=== PATIENT | male | born 1935 | race Caucasian/White ===

== ENCOUNTER 2018-11-20 09:43 | Inpatient (IN) | payer MEDICARE, BC ==
--- NOTE | 2018-11-20 10:11 | ED ---
Lower Extremity - HPI Summary HPI Summary: 83 year old M referred to [facility] by Dr. 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 Symptoms aggravated by movement. Symptoms alleviated by pain medication, last taken 1 week ago. Patient is able to ambulate. states that the night he feel after dinner, patient walked about half a mile over 3 different terrains of uneven boardwalk, concrete, and tile. states that while walking, patient's sandal hit the edge of tile and carpet causing patient to trip and fall forward. states that as patient fell down, he rotated his body and landed on to his right side. Patient states he did not hit his head or left side. no LOC. Patient states he needed assistance getting up after the fall and didn't realize he had right hip pain radiating to his right thigh and right knee until he got up. The next morning, patient stayed in bed per . states patient was given oral medication for bone pain. The resort's physician advised patient to leave the resort the night of the fall but patient did not because patient thought that his pain was improving per . This morning, patient ate one piece of toast with peanut butter and jelly. Patient is not taking blood thinners. Pt had imaging 11/18/18 documented impacted right femoral neck fx. Pt went to ortho today and was referred to ED for admission and planned pinning. 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 Patient is retired. Patient lives at home with his . Patients medication reviewed this visit. - History of Current Complaint Chief Complaint: EDHipPelvisInjury Stated Complaint: BROKEN HIP PER DR PATEL Time Seen by Provider: 11/20/18 09:49 Hx Obtained From: Patient, Family/Nutrition Services Manager - Mechanism Of Injury: Other - tripping on edge of tile and carpet, falling on to his right side Onset of Pain: Immediate Onset/Duration: Days - 12 Severity Currently: Mild Pain Intensity: 1 Pain Scale Used: 0-10 Numeric Timing: Constant Aggravating Factor(s): Movement Alleviating Factor(s): Other - pain medications - Allergies/Home Medications Allergies/Adverse Reactions: Allergies Allergy/AdvReac Type Severity Reaction Status Date / Time Penicillins Allergy Swelling Verified 11/20/18 09:48 Of Face,Lips,& Throat Home Medications: Home Medications NK [No Home Medications Reported] 11/20/18 [History Confirmed 11/20/18] PMH/Surg Hx/FS Hx/Imm Hx Previously Healthy: Yes Cardiovascular History: Reports: Other Cardiovascular Problems/Disorders - hypoglycemic episodes with light headedness Respiratory History: Reports: Hx Pneumonia Musculoskeletal History: Reports: Hx of Fracture(s) - R hip, Other Musculoskeletal History - pelvis injury Sensory History: Reports: Hx Macular Degeneration Opthamlomology History: Reports: Hx Macular Degeneration Neurological History: Reports: Other Neuro Impairments/Disorders - sciatica - Surgical History Surgery Procedure, Year, and Place: Left wrist, right ankle Infectious Disease History: No Infectious Disease History: Denies: Traveled Outside the [place] in Last 30 Days - Family History Known Family History: Positive: Non-Contributory Negative: Respiratory Disease - Social History Alcohol Use: Daily Alcohol Amount: 1-2 glasses of dry red wine at dinner Hx Substance Use: No Substance Use Type: Reports: None Hx Tobacco Use: Yes Smoking Status (MU): Current Every Day Smoker Type: Cigars Review of Systems Positive: Other - able to ambulate Positive: Other - right hip fracture, right hip pain radiating to right thigh and right knee All Other Systems Reviewed And Are Negative: Yes Physical Exam - Summary Physical Exam Summary: Vital Signs Reviewed: Yes A+Ox3, no distress Eyes: Conjunctiva Clear, JVAIER. EOM intact and full ENT: Hearing grossly normal TM x 2 clear, mmoist, uvula midline, no exudate, no erythema Neck: Positive: Supple Respiratory: Positive: No respiratory distress, No accessory muscle use + CTA throughout no w/r Cardiovascular: RRR nl s1, s2 no m/r CBT <2 sec abd soft + BS nt/nd no guarding, no distension Musculoskeletal Exam: CHO x 4 without difficulty Strength Intact, ROM Intact Neurological: Positive: Alert, + sensation throughout Psychological: Positive: Normal Response To cost and risk analysis manager Skin: Positive: no rash, no ecchymosis Triage Information Reviewed: Yes Vital Signs On Initial Exam: Initial Vitals Temp Pulse Resp BP Pulse Ox 98.7 F 80 16 177/87 96 11/20/18 09:44 11/20/18 09:44 11/20/18 09:44 11/20/18 09:44 11/20/18 09:44 Vital Signs Reviewed: Yes Diagnostics - Vital Signs Vital Signs Temp Pulse Resp BP Pulse Ox 11/20/18 09:44 98.7 F 80 16 177/87 96 - Laboratory Result Diagrams: 11/20/18 09:56 11/20/18 09:57 Lab Statement: Any lab studies that have been ordered have been reviewed, and results considered in the medical decision making process. - Radiology CXR Radiology Interpretation Completed By: Radiologist Summary of Radiographic Findings: CHRONIC INTERSTITIAL DISEASE WITH NO DEFINITE PNEUMONIA. ED physician has reviewed this report. - EKG 0956 Cardiac Rate: NL - 71 BPM EKG Rhythm: Sinus Rhythm Summary of EKG Findings: Sinus 71 BPM. No acute changes Lower Extremity Course/Dx - Course Course Of Treatment: Patient presents to urgent care with a known fracture of his right femoral neck. Patient had a mechanical fall on 11/08. Patient had pain initially been walking on it since. Patient L patient imaging on Sunday diagnosed with a fracture. Patient was sent to orthopedic office today who referred him to the ED for admission. Patient is healthy with no medical conditions other than glaucoma. Patient states his pain is less than 1 out of 10. Patient with good sensation intact. Spoke to Anjelica Cruz the physician' s assistant director of admissions from orthopedics will admit the patient. Patient to be kept nothing by mouth given gentle IV fluids will do preoperative lab work as well as imaging. Patient and significant other comfortable in agreement with plan. Questions asked and answered. - Diagnoses Provider Diagnoses: Nondisplaced fracture of neck of right femur - Physician Notifications Instructed by Provider To: Admit As Inpatient Discharge - Sign-Out/Discharge Documenting (check all that apply): Patient Departure - Discharge Plan Condition: Stable Disposition: ADMITTED TO [facility] Referrals: Blade Verma MD [Primary Care Provider] - - Billing Disposition and Condition Condition: STABLE Disposition: Admitted to [facility] - Attestation Statements Document Initiated by Scribe: Yes Documenting Scribe: Zulema Thomas Provider For Whom Scribe is Documenting (Include Credential): Judy Baez MD Scribe Attestation: Zulema Damon, scribed for Judy Baez MD on 11/20/18 at 1140. Scribe Documentation Reviewed: Yes Provider Attestation: The documentation as recorded by the scribe, Zulema Thomas accurately reflects the service I personally performed and the decisions made by me, Judy Baez MD Status of Scribe Document: Viewed
[2018-11-20 10:25] LABS: INR 1.06 (0.82-1.09)
[2018-11-20] MEDS ORDERED: NS 0.9% 1000 ML** 1,000 ML IV SCH (10:30)
[2018-11-20 10:36] LABS: Albumin 4.2 g/dL (3.2-5.2); BUN/Creatinine Ratio 21.9 (8-20); Calcium 9.5 mg/dL (8.6-10.3); EGFR African American 124.5 (>60); EGFR Non-African American 102.9 (>60); Globulin 4.1 g/dL (2-4); Magnesium 2.1 mg/dL (1.9-2.7); Potassium 4.4 mmol/L (3.5-5.0); Total Bilirubin 0.5 mg/dL (0.2-1.0); Total Protein 8.3 g/dL (6.4-8.9)
[2018-11-20] MEDS ORDERED: Docusate CAP* 100 MG PO PRN (10:50)
[2018-11-20] MEDS ORDERED: Ondansetron ODT TAB* 4 MG PO PRN (10:50)
[2018-11-20] MEDS ORDERED: diPHENhydraMINE PO* 25 MG PO PRN (10:50)
[2018-11-20] MEDS ORDERED: oxyCODONE TAB* 5 MG TAB PO PRN (10:50)
[2018-11-20] MEDS ORDERED: Morphine 4 MG/ML VIAL (1 ml) 4 MG/ML VIAL IV PRN (10:50)
[2018-11-20] MEDS ORDERED: Magnesium Hydroxide LIQ* 30 ML UDC PO PRN (10:50)
[2018-11-20] MEDS ORDERED: traMADol TAB* 50 MG PO PRN (10:50)
[2018-11-20] MEDS ORDERED: Ondansetron INJ* 2 MG/ML VIAL IV PRN (10:50)
[2018-11-20] MEDS ORDERED: diPHENhydraMINE IV* 50 MG/ML 1 ml VIAL (BENADRYL) IV PRN (10:50)
[2018-11-20] MEDS ORDERED: Lactated Ringers 1000 ML Bag* 1,000 ML IV SCH (11:00)
[2018-11-20 11:05] LABS: ABS Eosinophils 0.2 10^3/ul (0-0.6); ABS Lymphocytes 1.6 10^3/ul (1.0-4.8); ABS Monocytes 0.9 10^3/ul (0-0.8); ABS Neutrophils 4.1 10^3/ul (1.5-7.7); Eosinophil % 2.3 %; Hematocrit 38 % (42-52); Hemoglobin 12.6 g/dL (14.0-18.0); Lymphocyte % 23.7 %; Mean Corpuscular HGB Conc 34 g/dL (31-36); Mean Corpuscular Hemoglobin 33 pg (27-31); Mean Corpuscular Volume 99 fL (80-94); Mean Platelet Volume 8.7 fL (7.4-10.4); Nucleated Red Blood Cells % 0.1; Platelet Count 257 10^3/uL (150-450); Red Blood Count 3.81 10^6 /uL (4.18-5.48); Red Cell Distribution Width 13 % (10-15); White Blood Count 6.8 10^3/uL (3.5-10.8)
--- NOTE | 2018-11-20 13:40 | PN ---
Progress Note - Progress Note Date of Service: 11/20/18 Note: Please see full dictated note for further details. Patient has a right impacted femoral neck fracture. It will be managed with cannulated screws tomorrow with Dr Patel. He is to be NWB RLE, he may sit in a chair. Heparin until midnight, hold thereafter. NPO after midnight.
--- NOTE | 2018-11-20 14:13 | CONS ---
CC: Dr. Randy Patel; Dr. Blade Verma * DATE OF CONSULTATION: 11/20/2018. CONSULTING PROVIDER: Dr. Randy Patel. MY ATTENDING PHYSICIAN WHILE IN THE HOSPITAL: Dr. Felicita Silva (dictated by ALF Cullen). PRIMARY CARE PHYSICIAN: Dr. Blade Verma. REASON FOR CONSULTATION: Preoperative medical evaluation. HISTORY OF PRESENT ILLNESS: Mr. Hale is an 83-year-old male with a past medical history significant only for AAA, heart murmur, glaucoma, and BPH who presents to the emergency department. On November 09, he had had approximately four glasses of wine with his , was walking, feeling in his normal state of health, and tripped on the edge of his rug. He was able to turn himself and his right had significant pain after this. After this, no numbness or tingling in his leg and no significant deformity. The patient was able to continue walking. The patient was at a resort in [place] at the time and saw a physician there and was given pain medications, he is not sure what type. The patient, however, did continue to walk, was able to fly back to the [place] on the 16 of November and followed up with his primary care provider and then an orthopedist after being diagnosed with a hip fracture. The patient states the pain is his hip is mild at this time. The patient has not had any recent changes in his exercise tolerance. The patient several months ago was able to run up a flight of stairs without getting short of breath. He does not do this anymore due to concerns for slipping, but he is still able to walk up a flight of stairs without getting short of breath and is active around his lawn for approximately 12 hours a day, has a large property. The patient does sometimes get short of breath when walking briskly up hill for an extended period of time. The patient has never had a heart attack. The patient does not have any difficulty breathing lying flat. The patient has not had any swelling in his legs. No other recent illnesses. The patient only takes glaucoma medications. The patient does not have any history of pathologic fractures. The patient denies fevers, chills, nausea, vomiting, abdominal pain, diarrhea. The patient was sent in to the emergency department from his orthopedist office for hip fracture and consideration for surgical repair. PAST MEDICAL HISTORY: AAA, stable since at least 2014; glaucoma; left ankle fracture; right wrist fracture; gastric ulcer in 1965; BPH; heart murmur. PAST SURGICAL HISTORY: None. MEDICATIONS: Latanoprost one drop both eyes daily. ALLERGIES: PENICILLIN CAUSES ANAPHYLAXIS. FAMILY HISTORY: The patient's father in 1973 of leukemia. The patient's mother in the 30s of quinsy. The patient is the youngest of nine siblings. One of his siblings of an CA, one of cancer, one of an OD, one in infancy. The patient has three siblings who are in their 90s and are well. SOCIAL HISTORY: The patient has smoked for approximately 15 pack years, about half- a-pack a day, half a cigarette at a time. The patient drinks two glasses of red wine nightly and denies any illicit drugs. 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 He is to his second and has two children. The patient's surrogate decision maker would be his Dahlia Hale. The patient elected to be a DNR. REVIEW OF SYSTEMS: Fourteen point review of systems was reviewed and is negative except as noted in the HPI and for intentional weight loss since the winter. PHYSICAL EXAM: General: The patient is an 83-year-old male who appears stated age and is sitting comfortably in bed in no acute distress. Vital Signs: At the time of my evaluation, temperature 98.7, pulse rate 69, respiratory rate 16 , oxygen saturation 96 percent on room air, blood pressure 149/71. HEENT: Head normocephalic, atraumatic. Sclerae anicteric. No conjunctival injection. Nasal mucosa moist. Oral mucosa moist. No pharyngeal erythema, discharge, or exudate. Neck: Supple, nontender. No lymphadenopathy. No carotid bruits auscultated. No JVD. Cardiac: Regular rate and rhythm. Grade 2/6 holosystolic murmur heard best at the apex. No other adventitious heart sounds. Pulses are 2+ in the bilateral dorsalis pedis, posterior tibialis, and radial areas. No bilateral lower extremity edema noted. Bilateral calf tenders. Respiratory: Clear to auscultation bilaterally. No wheezes or rhonchi. Good air exchange bilaterally. Abdomen: Soft, nontender, nondistended. Bowel sounds present. Normoactive in all four quadrants. No hepatosplenomegaly. No abdominal bruits auscultated. No hepatojugular reflux. Genitourinary: No suprapubic or CVA tenderness. Skin: Clean, dry, and intact. No rash. Neuro: Cranial nerves II through XII intact. No focal deficits. Alert and oriented times three. Psychiatric: Pleasant and cooperative. DIAGNOSTIC STUDIES/LAB DATA: White blood cell count pending. INR 1.06. Sodium 136, potassium 4.4, chloride 103, carbon dioxide 27, BUN 16, creatinine 0.73, glucose 98, calcium 9.5, magnesium 2.1, bilirubin 0.5, AST 19, ALT 12, alkaline phosphatase 66, protein 8.3, albumin 4.2, globulin 4.1. STUDIES: Chest x-ray read as chronic interstitial lung disease with no definite pneumonia, to this author's read is unremarkable. EKG shows possible left atrial enlargement, no other hypertrophy enlargement, no blocks, rate of 71 , QTC of 455, no ST segment elevation or depression, borderline left axis deviation. IMPRESSION: Mr. Hale is an 83-year-old male with a past medical history significant for AAA, heart murmur, and a significant history of smoking who presented to the emergency department after a mechanical fall causing a right hip fracture for which he will be admitted to the hospital. 1. Right hip fracture: Preoperative risk evaluation. The patient has excellent functional capacity. The patient has functional capacity. The patient has previously been evaluated with an echocardiogram for his heart murmur, though these results are not available and he is not able to impart these at this time. The patient has no heart failure physiology, nor is his murmur diastolic, nor have any other markedly alarming features. Will attempt to get records from his primary care provider, but his does not need to delay his surgery. The patient is an RCR of 0 indicating a 3.9 30 day risk of , CA, or cardiac arrest. The patient at this time is medically optimized for surgery with no further testing indicated. This has been communicated to the orthopedic team. 2. AAA: The patient's AAA has been stable since at least 2014. Would avoid extreme changes in blood pressure intraoperatively if possible. The patient may need antihypertensive therapy at some point to decrease the progression of his AAA; however, this is not indicated at this time. 3. History of tobacco abuse: The patient currently smokes two cigars a day. Nicotine inhaler will be available if requested. The patient should quit smoking. 4. BPH: The patient is not currently retaining, but does have some lower urinary tract symptoms consistent with intermittent obstruction without retention. 5. DVT prophylaxis: Per Orthopedics. The patient has no contraindications to anticoagulation. 6. FEN: The patient will be NPO at this time for possible surgery. The patient will have fluids while he is NPO at 100 ml/hr. Advance per Orthopedics. 7. Code status: The patient will like to be a DNR. TIME SPENT: Approximately 60 minutes were spent on this consultation, 30 of which were spent [id number] with the patient obtaining history and physical and discussing the treatment plan. This plan was discussed with my attending, Dr. Felicita Silva, and she is in agreement with the above. ALF CULLEN [id number]/CPS #: [id number] JOSTIN
[2018-11-20 14:18] LABS: EGFR African American 139.8 (>60); EGFR Non-African American 115.6 (>60)
[2018-11-20] MEDS: Acetaminophen TAB* 325 MG PO SCH ×2 (14:21→21:17)
[2018-11-20] MEDS: Heparin VIAL(*) 5000 UNITS/ML VIAL (FIVE THOUSAND) SUBCUT SCH ×2 (14:24→21:17)
--- OUTSIDE RECORDS SUMMARY | 2018-11-20 17:54 | XMS REPORT | Continuity of Care Document ---
:02/21/1950 External Reference #:[id number] Author Name Lazara Baez MD Address [address] [place] [address] Care Team Providers Name Role Phone [facility] - Allergy & Care Team Information [facility] Care Team Information [place] [phone] Jayleen Becerril Care Team Information [facility] [phone] Brittany Barclay Care Team Information [facility] Unavailable Lazara Baez MD - Family Medicine Care Team Information [facility] Edi Jalloh MD Care Team Information [facility] [phone] Robert Valdez PT - Physical Care Team Information [facility] [phone] Therapist Kulwinder Lund DPM - Jewelry Sales Care Team Information [facility] Brandyn Valdez Development Trainer Care Team Information [facility] [phone] Hank Goldberg MD - Urology Care Team Information [facility] [phone] Jt Dorado MD - Otolaryngology Care Team Information [facility] Problems Active Problems Provider Date Obstructive sleep apnea syndrome Gustavo Madsen DO Onset: 02/19/2014 Mixed hyperlipidemia Gustavo Madsen DO Onset: 06/20/2012 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 Ghada Raymundo MD Onset: 11/24/2009 Gastroesophageal reflux disease Ghada Raymundo MD Onset: 11/24/2009 Type 2 diabetes mellitus Ghada Raymundo MD Onset: 11/24/2009 Generalized anxiety disorder Ghada Raymundo MD Onset: 11/24/2009 Degenerative joint disease involving multiple Ghada Raymundo MD Onset: joints Malignant tumor of prostate Lazara Baez MD Onset: 04/25/2018 Irritable bowel syndrome with diarrhea Lazara Beaz MD Onset: 04/25/2018 Polyneuropathy due to type 2 diabetes mellitus Lazara Baez MD Onset: Insomnia Lazara Baez MD Onset: 08/05/2018 Social History Type Date Description Comments Sex Unknown ETOH Use Never used alcohol Tobacco Use Start: Unknown End: Patient is a former quit is his early Unknown smoker 20's - does not meet criteria for low dose lung cancer screening Smoking Status Reviewed: 11/15/18 Patient is a former quit is his early smoker 20's - does not meet criteria for low dose lung cancer screening Exercise Does not exercise Type/Frequency Allergies, Adverse Reactions, Alerts Description No Known Drug Allergies Medications Active Medications SIG Qnty Indications Ordering Provider Date Duloxetine HCL take one capsule 53caps F41.1 Lazara Baez, 11/07/2018 30mg by mouth every MD Caps DR Part day M51.17 Methylprednisolone use as directed 1pack Jessy De Santiago, 09/09/2018 4mg TBPK M.D. Cpap use with sleep G47.33 Lazara Baez, 08/05/2018 Device Gabapentin take 1 by mouth 90tabs M51.06 Jessy De Santiago, 07/29/2018 600mg Tablets three times a day M.D. M15.9 Pioglitazone HCL 1 by mouth every 90tabs E11.9 Lazara Baez, 05/20/2018 15mg day MD Tablets Accu-Chek Fastclix Glucose Monitoring 1units E11.9 Gustavo Madsen, 07/07 Lancetdevice Kit Daily. DX: 250.00 DO Kit Alcohol Pads used as directed 100units Lazara Baez, 07/06/2014 70% Pads for glucose MD monitoring. dx: 250.0 Vitamin D 1 by mouth every Unknown 2000Unit day Capsules Accu-Chek Kimi Plus check blood sugar 100units Lazara Baez, daily Strips Accu-Chek Fastclix check fasting blood 102units Lazara Baez, Lancets sugar as needed MD Lam Metformin HCL ER take 4 tablets by 120tabs E11.9 Lazara Baez, 500mg mouth every day Tablets ER 24HR with meal Trazodone HCL take two tablets by 60tabs G47.00 Lazara Baez, 50mg mouth at bedtime Tablets Multi Vitamin 1 by mouth every Lazara Baez, Tablets day Fish Oil Quell 2 po qd Jessy De Santiago, Capsules M.DTevin Esomeprazole Magnesium take one capsule by 180caps K21.9 Lazara Baez, mouth twice a day 40mg Capsules DR Acetaminophen 2 by mouth twice a Lazara Baez, 500mg day as needed Tablets Glimepiride take 1 tablet by 180tabs E11.9 Lazara Baez, 2mg Tablets mouth twice daily Atorvastatin Calcium take one tablet by 90tabs E78.2 Lazara Baez, 10mg mouth every day Tablets Alprazolam 1/2 by mouth once F41.1 Lazara Baez, 1mg Tablets a day code "a" as MD needed History Medications Amoxicillin/Clavulanate 1 by mouth 20tabs K57.32 Nestor 07/10/2018 - Potassium twice daily MD Lazara 07/20/2018 875-125mg Tablets x 10 days Gabapentin 1 by mouth 90caps M51.06 Nestor 07/10/2018 - 400mg Capsules 3 times a MD Lazara 07/29/2018 day Medications Administered in Office Medication SIG Qnty Indications Ordering Provider Date Low Osmolar Contrast Material Jessy De Santiago M.D. 12/31/2017 200-299MG/ML Iodine 1ML Injection Decadron 1MG Dexamethasone Jessy De Santiago M.D. 12/31/2017 Sodium Phosphate 1MG Injection Decadron 1MG Dexamethasone Jessy De Santiago M.D. 11/05/2017 Sodium Phosphate 1MG Injection Decadron 1MG Dexamethasone Jessy De Santiago M.D. 03/27/2017 Sodium Phosphate 1MG Injection Low Osmolar Contrast Material Jessy De Santiago M.D. 02/23/2017 200-299MG/ML Iodine 1ML Injection Low Osmolar Contrast Material Jessy De Santiago M.D. 01/04/2017 200-299MG/ML Iodine 1ML Injection Low Osmolar Contrast Material Jessy De Santiago M.D. 10/11/2016 200-299MG/ML Iodine 1ML Injection Decadron 1MG Dexamethasone Jessy De Santiago M.D. 10/11/2016 Sodium Phosphate 1MG Injection Low Osmolar Contrast Material Jessy De Santiago M.D. 09/06/2016 200-299MG/ML Iodine 1ML Injection Decadron 1MG Dexamethasone Jessy De Santiago M.D. 09/06/2016 Sodium Phosphate 1MG Injection Low Osmolar Contrast Material Jessy De Santiago M.D. 05/11/2016 200-299MG/ML Iodine 1ML Injection Depo Medrol 40 MG Jessy De Santiago M.D. 05/11/2016 Injection Low Osmolar Contrast Material Jessy De Santiago M.D. 05/04/2016 200-299MG/ML Iodine 1ML Injection Decadron 1MG Dexamethasone Jessy De Santiago M.D. 05/04/2016 Sodium Phosphate 1MG Injection Depo Medrol 80 MG Gustavo Madsen DO 04/22/2014 Injection Immunizations CPT Code Status Date Vaccine Reaction Lot # [id number] Given 01/24/2018 Fluzone Highdose Age 65 And Over Preservative & Antibiotic Free 26132 Given 06/07/2017 Tdap (Boostrix)tetanus, diptheria toxoid & acellular pertussis 79459 Given 02/02/2017 Fluzone Highdose Age 65 And Given at [facility] Preservative & Chopper Antibiotic Free 75669 Given 07/05/2016 Pneumococcal 23 Immunization Im inj completed, Pt [id number] Adult Or Immunosuppressed tolerated well Patient Q2037 Given 12/30/2015 Fluvirin Immunization Given At [facility] 21544 Given 01/05/2015 Prevnar 13 Pneumococal Im inj completed, Pt [id number] Conjugate Vaccine tolerated well 40652 Given 01/16/2013 Afluria Or Fluvirin Flu Vac Intramuscular 21228 Given 03/20/2006 Afluria Or Fluvirin Flu Vac [id number] Intramuscular 24318 Refused 04/25/2018 Shingrix (Shingles) Zoster Vaccine HZV, Recombinant , Subunit, Adj Vital Signs Date Vital Result Comment 11/15/2018 1:48pm Weight 208.00 lb Heart Rate 90 /min BP Systolic 138 mmHg BP Diastolic 88 mmHg Respiratory Rate 18 /min Height 69 inches 5'9" BMI (Body Mass Index) 30.7 kg/m2 11/07/2018 8:39am Weight 214.56 lb Heart Rate 78 /min BP Systolic 132 mmHg BP Diastolic 84 mmHg Respiratory Rate 18 /min Height 69 inches 5'9" BMI (Body Mass Index) 31.7 kg/m2 Results Test Date Facility Test Result H/L Range Note Microalb/Creat Panel 11/07/2018 [facility] Creatinine, Urine 118.7 mg/dL 1 Microalbumin < 7.0 ug/ml 5.0-20.0 Lipid Treatment 10/31/2018 [facility] Cholesterol 160 mg/dL 50-199 2 Triglycerides 191 mg/dL 30-200 HDL 40 mg/dL 29-71 3 Chol/ HDL Ratio 4.0 ratio 4.0-6.7 VLDL 38 mg/dL High 2-29 LDL (Calc) 82 mg/dL 20-99 4 Alt 20 U/L 3-42 Ast 16 U/L 8-42 Basic (BMP) 10/31/2018 [facility] Sodium 136 mmol/L 135-146 5 Potassium 4.6 mmol/L 3.5-5.2 Chloride# 99 mmol/L 97-110 6 Carbon Dioxide 25 mmol/L 24-34 Glucose 220 mg/dL High 70-105 BUN 20 mg/dL 6-26 Creatinine 1.1 mg/dL 0.5-1.4 Calcium 9.6 mg/dL 8.5-10.5 7 Female Egfr 52 Low >60 8 Male Egfr 69 >60 9 Anion Gap 12 mmol/L 5-15 10 Hemoglobin A1c 10/31/2018 [facility] Hemoglobin A1c 8.0 % High 4.1-5.9 Estimated Average Glucose Calc 183 mg/dL High 71-140 Drugs Of 08/05/2018 [facility] Amphetamines,Urine NEGATIVE <1000 ng/mL Abuse,Urine-[facility] Barbiturates,Urine NEGATIVE <200 ng/mL Benzodiazepines, Urine POSITIVE Abnormal <200 ng/mL Bupernorphrine/Norbu,Urine NEGATIVE <10 ng/mL Cocaine Metabolites,Urine NEGATIVE <300 ng/mL Methadone,Urine NEGATIVE <300 ng/mL Opiates,Urine NEGATIVE <300 ng/mL Oxycodone,Urine NEGATIVE <100 ng/mL Phencyclidine,Urine NEGATIVE <25 ng/mL Cannabinoids,Urine NEGATIVE <50 ng/mL Basic (BMP) 07/31/2018 [facility] Sodium 136 mmol/L 135-146 11, 12 Potassium 4.5 mmol/L 3.5-5.2 Chloride# 100 mmol/L 97-110 13 Carbon Dioxide 27 mmol/L 24-34 Glucose 208 mg/dL High 70-105 BUN 21 mg/dL 6-26 Creatinine 1.0 mg/dL 0.5-1.4 Calcium 9.6 mg/dL 8.5-10.2 Female Egfr 57 Low >60 14 Male Egfr 75 >60 15 Anion Gap 9 mmol/L 5-15 16 Hemoglobin A1c 07/31/2018 Ra Hemoglobin A1c 8.0 % High 4.1-5.9 Estimated Average Glucose Calc 183 mg/dL High 71-140 1 Unable to calculate ratio. Microalbumin <7.0 2 3 mo 3 Per NCEP ATP III Guidelines: Results lower than 40 mg/dL are suggestive of increased risk for coronary artery disease. Results > or=to 60 mg/dL are considered a negative risk factor. 4 Per NCEP ATP III Guidelines: Normal Population <130 Patients with medical conditions: CHD/DM Optimal: <100 Borderline high: 130-159 High: 160-189 Very high: >189 5 Updated reference range on new analyzer 6 Updated reference range on new analyzer 7 Updated reference range 08-07-2018 8 Concerning GFR Guidelines for Americans: Normal function or mild renal disease, if clinically at risk: >/=60 mL/min Moderately decreased: 30-59 Severely decreased: 15-29 Renal failure: <15 There is reduced accuracy above 60ml/min/1.73 m squared, but the numeric value may be clinically useful in the near 60 range 9 Concerning GFR Guidelines: Normal function or mild renal disease, if clinically at risk: >/=60 mL/min Moderately decreased: 30-59 Severely decreased: 15-29 Renal failure: <15 There is reduced accuracy above 60ml/min/1.73 m squared, but the numeric value may be clinically useful in the near 60 range Glomerular Filtration Rate (GFR) is estimated based on the CKD-EPI equation, which assumes a steady state for creatinine as recommended by the National Kidney Disease Education Program in conjunction with the National Institutes of Health and the National Kidney Foundation. Clinical conditions in which it may be necessary to measure GFR by using clearance methods include extremes of age and body size, severe malnutrition or obesity, diseases of skeletal muscle, paraplegia or quadriplegia, vegetarian diet, rapidly changing kidney function, and calculation of the dose of potentially toxic drugs that are excreted by the kidneys. 10 Updated Reference Range 11 3 mos 12 Updated reference range on new analyzer 13 Updated reference range on new analyzer 14 Concerning GFR Guidelines for Americans: Normal function or mild renal disease, if clinically at risk: >/=60 mL/min Moderately decreased: 30-59 Severely decreased: 15-29 Renal failure: <15 There is reduced accuracy above 60ml/min/1.73 m squared, but the numeric value may be clinically useful in the near 60 range 15 Concerning GFR Guidelines: Normal function or mild renal disease, if clinically at risk: >/=60 mL/min Moderately decreased: 30-59 Severely decreased: 15-29 Renal failure: <15 There is reduced accuracy above 60ml/min/1.73 m squared, but the numeric value may be clinically useful in the near 60 range Glomerular Filtration Rate (GFR) is estimated based on the CKD-EPI equation, which assumes a steady state for creatinine as recommended by the National Kidney Disease Education Program in conjunction with the National Institutes of Health and the National Kidney Foundation. Clinical conditions in which it may be necessary to measure GFR by using clearance methods include extremes of age and body size, severe malnutrition or obesity, diseases of skeletal muscle, paraplegia or quadriplegia, vegetarian diet, rapidly changing kidney function, and calculation of the dose of potentially toxic drugs that are excreted by the kidneys. 16 Updated Reference Range Procedures Date Code Description Status 11/07/2018 16074 Brief Emotional/Behav Assessment W/ Scoring Doc Per Completed Standard Inst 02/11/2016 18286287 Colonoscopy Completed Medical Devices Description No Information Available Encounters Type Date Location Provider Dx Diagnosis Office Visit 11/07/2018 8:45a [facility] Lazara Baez MD E66.9 Obesity, unspecified E78.2 Mixed hyperlipidemia E11.9 Type 2 diabetes mellitus without complications M51.17 Intvrt disc disorders w radiculopathy, lumbosacral region N40.1 Benign prostatic hyperplasia with lower urinary tract symp F41.1 Generalized anxiety disorder C61 Malignant neoplasm of prostate M15.9 Polyosteoarthritis, unspecified G47.33 Obstructive sleep apnea (adult) (pediatric) K21.9 Gastro-esophageal reflux disease without esophagitis G47.00 Insomnia, unspecified Z68.31 Body mass index (BMI) 31.0-31.9, adult Office Visit 09/09/2018 7:45a Lisa Hutchinson Rachel M51.17 Intvrt disc MD Roxana MIGUEL disorders w radiculopathy, lumbosacral region M51.16 Intervertebral disc disorders w radiculopathy, 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, 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, lumbar region Z68.31 Body mass index (BMI) 31.0-31.9, adult Office Visit 08/05/2018 8:00a [facility] Lazara Baez MD Z00.00 Encntr for general adult medical exam w/o abnormal findings E66.9 Obesity, unspecified N40.1 Benign prostatic hyperplasia with lower urinary tract symp F41.1 Generalized anxiety disorder C61 Malignant neoplasm of prostate M15.9 Polyosteoarthritis, unspecified E11.9 Type 2 diabetes mellitus without complications E78.2 Mixed hyperlipidemia G47.33 Obstructive sleep apnea (adult) (pediatric) Z13.31 Encounter for screening for depression K21.9 Gastro-esophageal reflux disease without esophagitis Z68.31 Body mass index (BMI) 31.0-31.9, adult G47.00 Insomnia, unspecified Office Visit 07/29/2018 7:45a Lisa Hutchinson Rachel M51.17 Intvrt disc MD Roxana MIGUEL disorders w radiculopathy, lumbosacral region M51.16 Intervertebral disc disorders w radiculopathy, 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, 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, lumbar region Z68.31 Body mass index (BMI) 31.0-31.9, adult Office Visit 07/10/2018 9:15a [facility] Lazara Baez MD E66.9 Obesity, unspecified K57.32 Dvtrcli of lg int w/o perforation or abscess w/o bleeding 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, lumbar region Z68.31 Body mass index (BMI) 31.0-31.9, adult Assessments Date Code Description Provider 11/15/2018 F41.1 Generalized anxiety disorder Lazara Baez MD 11/15/2018 M15.9 Polyosteoarthritis, unspecified Lazara Baez MD 11/07/2018 E66.9 Obesity, unspecified Lazara Baez MD 11/07/2018 E78.2 Mixed hyperlipidemia Lazara Baez MD 11/07/2018 E11.9 Type 2 diabetes mellitus without Lazara Baez MD complications 11/07/2018 M51.17 Intervertebral disc disorders with Lazara Baez MD radiculopathy, lumbosacra 11/07/2018 N40.1 Benign prostatic hyperplasia with lower Lazara Baez MD urinary tract symptoms 11/07/2018 F41.1 Generalized anxiety disorder Lazara Baez MD 11/07/2018 C61 Malignant neoplasm of prostate Lazara Baez MD 11/07/2018 M15.9 Polyosteoarthritis, unspecified Lazara Baez MD 11/07/2018 G47.33 Obstructive sleep apnea (adult) (pediatric) Lazara Baez MD 11/07/2018 K21.9 Gastro-esophageal reflux disease without Lazara Baez MD esophagitis 11/07/2018 G47.00 Insomnia, unspecified Lazara Baez MD 11/07/2018 Z68.31 Body mass index (BMI) 31.0-31.9, adult Lazara Baez MD 11/07/2018 E11.9 Type 2 diabetes mellitus without [facility] complications 10/31/2018 E78.2 Mixed hyperlipidemia Lazara Baez MD 10/31/2018 E78.2 Mixed hyperlipidemia Schedule, Laboratory 10/31/2018 E11.9 Type 2 diabetes mellitus without Lazara Baez MD complications 10/31/2018 E11.9 Type 2 diabetes mellitus without Schedule, Laboratory complications 10/31/2018 E78.2 Mixed hyperlipidemia [facility] 10/31/2018 E11.9 Type 2 diabetes mellitus without [facility] complications 09/09/2018 M51.17 Intervertebral disc disorders with Bossi, Shirin, PA-C radiculopathy, lumbosacra 09/09/2018 M51.16 Intervertebral disc disorders with Bossi, Shirin, PA-C radiculopathy, lumbar reg 09/09/2018 M47.817 Spondylosis without myelopathy or Bossi, Shirin, PA-C radiculopathy, lumbosacral 09/09/2018 M47.816 Spondylosis without myelopathy or Bossi, Shirin, PA-C radiculopathy, lumbar [place] 09/09/2018 Z68.31 Body mass index (BMI) 31.0-31.9, adult Boscarol Shirin, PA-C 08/05/2018 Z00.00 Encounter for general adult medical Lazara Baez MD examination without abnormal findings 08/05/2018 E66.9 Obesity, unspecified Lazara Baez MD 08/05/2018 N40.1 Benign prostatic hyperplasia with lower Lazara Baez MD urinary tract symptoms 08/05/2018 F41.1 Generalized anxiety disorder Lazara Baez MD 08/05/2018 C61 Malignant neoplasm of prostate Lazara Baez MD 08/05/2018 M15.9 Polyosteoarthritis, unspecified Lazara Baez MD 08/05/2018 E11.9 Type 2 diabetes mellitus without Lazara Baez MD complications 08/05/2018 E78.2 Mixed hyperlipidemia Lazara Baez MD 08/05/2018 G47.33 Obstructive sleep apnea (adult) (pediatric) Lazara Baez MD 08/05/2018 Z13.31 Encounter for screening for depression Lazara Baez MD 08/05/2018 K21.9 Gastro-esophageal reflux disease without Lazara Baez MD esophagitis 08/05/2018 Z68.31 Body mass index (BMI) 31.0-31.9, adult Lazara Baez MD 08/05/2018 G47.00 Insomnia, unspecified Lazara Baez MD 08/05/2018 Z79.899 Other prison (current) drug therapy [facility] 07/31/2018 E11.9 Type 2 diabetes mellitus without Lazara Baez MD complications 07/31/2018 E11.9 Type 2 diabetes mellitus without Schedule, Laboratory complications 07/31/2018 E11.9 Type 2 diabetes mellitus without [facility] complications 07/29/2018 M51.17 Intervertebral disc disorders with Shirin Gonzalez PA-C radiculopathy, lumbosacra 07/29/2018 M51.16 Intervertebral disc disorders with Shirin Gonzalez PA-C radiculopathy, lumbar reg 07/29/2018 M47.817 Spondylosis without myelopathy or Shirin Gonzalez PA-C radiculopathy, lumbosacral 07/29/2018 M47.816 Spondylosis without myelopathy or Shirin Gonzalez PA-Hortensia radiculopathy, lumbar dal[place] 07/29/2018 Z68.31 Body mass index (BMI) 31.0-31.9, adult Shirin Gonzalez PA-C 07/10/2018 E66.9 Obesity, unspecified Lazara Baez MD 07/10/2018 K57.32 Diverticulitis of large intestine without Lazara Baez MD perforation or abs 07/10/2018 M51.06 Intervertebral disc disorders with Lazara Baez MD myelopathy, lumbar region 07/10/2018 Z68.31 Body mass index (BMI) 31.0-31.9, adult Lazara Baez MD Plan of Treatment Future Appointment(s):11/22/2018 3:30 pm - Lazara Baez MD at [facility]01/31/2019 9:05 am - Schedule, Laboratory at [facility]02/07/2019 8:45 am - Lazara Baez MD at [facility]01/10/2019 7:45 am - Shirin Gonzalez PA-C at [facility] MD [id number] - Lazara Baez MDF41.1 Generalized anxiety disorderComments:Anxiety was doing better on 30 mg of duloxetine. He did not tolerate 60 mg of duloxetine. He tolerated 30 mg of duloxetine. We will resume one pill during the day. advised to stop duloxetine if hehas another episode of swelling of the lips. He would like to try to stay on this medicationFollow up:Follow up as xkdlsbiriQ52.9 Polyosteoarthritis, unspecifiedComments:His arthritis symptoms also improved with low dose duloxetine. continue this for now. Functional Status Description No Information Available Mental Status Description No Information Available Referrals Description No Information Available
--- OUTSIDE RECORDS SUMMARY | 2018-11-20 17:55 | XMS REPORT | Continuity of Care Document ---
:02/21/1950 External Reference #:[id number] Author Name Lazara Baez MD Address [address] [place] [address] Care Team Providers Name Role Phone Brittany Barclay Care Team Information Director Of Business Continuity Unavailable Lazara Baez MD Primary Care Physician Unavailable Payers Date Identification Numbers Payment Provider Subscriber Effective: 2013 Policy Number: [id number] Medicare Part B Garrett Hale PayID: [id number] [address] [place] [address] Policy Number: [id number] Lifetime Benefit Solns Kaycee Hale Group Number: [id number] [address] [address] PayID: [place] [address] Expires: 2014 Policy Number: [id number] Rmsco DO Not Use Kaycee Hale Group Number: [id number] [address] PayID: [place] [address] Problems Active Problems Provider Date Obstructive sleep [...] 04/25/2018 Irritable bowel syndrome with diarrhea Lazara Baez MD Onset: 04/25/2018 Polyneuropathy due to type 2 diabetes mellitus Lazara Baez MD Onset: Insomnia Lazara Baez MD Onset: 08/05/2018 Resolved Problems Benign prostatic hypertrophy with outflow Lazara Baez MD Onset: 2017 obstruction Resolved: 11/07/2018 Social History Type Date Description Comments Sex Unknown Marital Status Diet Healthy, Well Balanced Occupation Disabled - 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 disabled, 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, due to back and knees, arthritis 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, 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, 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 Hand Dominance LEFT-handed Abuse No history of abuse ETOH Use Never used alcohol Tobacco Use Start: Unknown End: Patient is a former quit is his early Unknown smoker 20's - does not meet criteria for low dose lung cancer screening Smoking Status Reviewed: 08/05/18 Patient is a former quit is his early smoker 20's - does not meet criteria for low dose lung cancer screening Exercise Does not exercise Type/Frequency Allergies, Adverse Reactions, Alerts Description No Known Drug Allergies Medications Active Medications SIG Qnty Indications Ordering Provider Date Duloxetine HCL take one capsule 53caps F41.1 Lazara Baez, 11/07/2018 30mg by mouth every MD Caps DR Part day x 1 week then 2 po daily M51.17 Methylprednisolone use as directed 1pack Jessy De Santiago, 09/09/2018 4mg TBPK M.D. Cpap use with sleep G47.33 Lazara Baez, 08/05/2018 Device MD Gabapentin take 1 by mouth 90tabs M51.06 [...] K21.9 Lazara Baez, mouth twice a day MD 40mg Capsules DR Acetaminophen 2 by mouth [...] K57.32 Nestor 07/10/2018 - Potassium twice daily x MD Lazara 07/20/2018 875-125mg Tablets 10 days Gabapentin 1 by mouth 3 90caps M51.06 Nestor 07/10/2018 - 400mg Capsules times a day MD Lazara 07/29/2018 Gabapentin 1 by mouth 90caps M51.06 Jonnathan, 03/29/2018 - 300mg Capsules three times a Yudy Jiménez 07/10/2018 day Gabapentin 2 by mouth 180caps Jonnathan, 01/25/2018 - 100mg Capsules three times a Yudy Jiménez 03/29/2018 day Cyclobenzaprine HCL take 1 tablet 30tabs M54.5 Digiovanna, 01/07/2018 - 10mg Tablets by mouth every Ladonna, [employer] 04/24/2018 8 hours as needed for pain Pioglitazone HCL 1 by mouth 30tabs E11.9 Nestor, 08/24/2017 - 15mg Tablets every day MD Lazara 04/25/2018 Ec-81 Aspirin 1 by mouth 30tabs Nestor, 07/09/2017 - 81mg Tablets DR every day MD Lazara 12/17/2017 Elias Johnson, 02/02/2017 - Precious Bazan NP 04/12/2017 Pioglitazone HCL 1 by mouth 30tabs E11.9 Nestor, 01/03/2017 - 30mg Tablets every day MD Lazara 08/24/2017 Anexsia Every 4 Hours 12tabs Unknown 02/15/2015 - 5-325mg Tablets as Needed prn 03/25/2015 Pain Accu-Chek Kimi Plus Use To Check 100units E11.9 Cale, 01/05/2015 - Strips Blood Sugar DO Gustavo 03/14/2017 Daily as Directed Nasonex 2 puffs each 3units J30.9 Cale, 05/19/2014 - 50mcg/Act Suspension nostril every d DO Gustavo 07/24/2016 Claritin 1 PO Q D 30tabs 995.1 Cale, 04/28/2014 - 10mg Tablets DO Gustavo 06/02/2014 Ranitidine HCL 1PO bid 60tabs 995.1 Cale, 04/28/2014 - 150mg Tablets DO Gustavo 06/02/2014 Glucotrol XL 1 by mouth 90tabs Cale, 04/07/2014 - 10mg Tablets ER 24HR every day DO Gustavo 10/07/2014 Glucotrol XL 1 by mouth 90tabs Cale, 04/07/2014 - 10mg Tablets ER 24HR every day DO Gustavo 07/06/2014 Glucotrol XL 1 by mouth 90tabs Cale, 04/07/2014 - 10mg Tablets ER 24HR every day DO Gustavo 06/02/2014 Ibuprofen 1 by mouth 270tabs Cale, 01/06/2014 - 800mg Tablets three times a DO Gustavo 03/25/2015 day with food Veramyst 2 puffs each 3units Cale, 04/17/2013 - 27.5mcg/[place] Suspension nostril every d DO Gustavo 05/19/2014 Veramyst 2 puffs each 3units Cale, 04/17/2013 - 27.5mcg/[place] Suspension nostril every d DO Gustavo 03/25/2015 [facility] Vitamin D3 3 po qd E55.9 Nestor, 11/26/2012 - 1000Unit Chewmaria Haile MD 10/17/2017 Glumetza take four 360tabs Cale, 11/03/2011 - 500mg Tablets ER 24HR tablets by DO Gustavo 06/02/2014 mouth every day Aspirin Adult Low Strength 1 po qd 30tabs Breanne 11/24/2009 - 81mg MD Ghada 03/25/[address] De La Paz Curcumin 2 po qd Unknown - 02/23/2017 Hydrocodone-Acetaminophen 1 po tid as Unknown - 5-325mg needed Given at 02/02/2017 Tablets [facility] ER Lactobacillus 1 by mouth bid Unknown - Tablets while on 02/02/2017 antibiotic Given at [facility] ER Metronidazole 1 by mouth Unknown - 500mg Tablets three times a 02/02/2017 day x 12 days Given at [facility] ER Amoxicillin/Clavulanate 1 by mouth q 8 Unknown - Potassium hrs x 10 days 02/02/2017 500-125mg Tablets Given at [facility] ER Ondansetron HCL 1 tablet q8 Unknown - 4mg Tablets hours as needed 02/02/2017 nausea & vomitting Given at [facility] ER Curcumin Unknown - Tablets 02/02/2017 Zinc 1 by mouth Unknown - 50mg Tablets every day 03/14/2017 Disc Flex Unknown - 02/23/2017 Florastor 1 by mouth Nestor - 250mg Capsules twice a day MD Lazara 07/09/2017 Meriva Unknown - 01/25/2018 Hyoscyamine Sulfate ER 1 by mouth 90tabs K58.0 Nestor, - 0.375mg daily MD Lazara 07/29/2018 Tablets ER 12HR Tamsulosin HCL Iannotta, - 0.4mg Capsules Zachariah PA 10/17/2017 Advil 2 tab three Unknown - 200mg Tablets times a day as 01/25/2018 needed Natural Glucocil 4 po qd Unknown - 11/02/2016 [facility] Men's Diabetic Support 2 po qd Unknown - 03/27/2017 [facility] Diabetic Support Packet 1 po miguel Unknown - 11/02/2016 Ibuprofen 3-4 tabs by Unknown - 200mg Capsules mouth three 02/02/2017 times a day as needed with food or snack for pain Flomax 1 by mouth N40.1 Unknown - 0.4mg Capsules every oncee a 07/29/2018 day Nexium Take One 180caps K21.9 Cale, - 40mg Capsules DR Capsule By DO Gustavo 08/29/2016 Mouth Twice A Day Trazodone HCL AT Bedtime Unknown - 100mg Tablets 03/25/2015 Cialis Once Daily Becerril,Clemens - 5mg Tablets 07/30/2015 Naproxen Kit 2 Times A Day 60tabs Unknown - 500mg Tablets 03/25/2015 Fortamet Once Daily Unknown - 500mg Tablets ER 24HR 03/25/2015 Levocetirizine Once Daily J30.9 Unknown - Dihydrochloride 07/24/2016 5mg Tablets Aspirin Ec Once Daily E11.9 Unknown - 81mg Tablets DR 02/02/2017 Escitalopram Oxalate take one tablet 90tabs F41.1 Nestor, - 20mg Tablets by mouth every MD Lazara 11/07/2018 day M51.17 Nexium Take One Capsule 180caps CaleGustavo, - 40mg By Mouth Twice A DO 07/06/[address] Day Nexium Take One Capsule 180caps Cale, Gustavo, - 40mg By Mouth Twice A DO 07/06/[address] Audra Medications Administered in Office Medication SIG Qnty Indications Ordering Provider Date Low Osmolar Contrast Material Melfi, Jessy, M.D. 12/31/2017 200-299MG/ML Iodine 1ML Injection Decadron [...] Injection Depo Medrol 40 MG Jessy De Santaigo M.D. 05/11/2016 Injection Low Osmolar Contrast Material Jessy De Santiago M.D. 05/04/2016 200-299MG/ML Iodine 1ML Injection Decadron 1MG Dexamethasone Jessy De Santiago M.D. 05/04/2016 Sodium Phosphate 1MG Injection Depo Medrol 80 MG Gustavo Madsen DO 04/22/2014 Injection Immunizations CPT Code Status Date Vaccine Reaction Lot # [id number] Given 01/24/2018 Fluzone Highdose Age 65 And Over Preservative & Antibiotic Free 12309 Given 06/07/2017 Tdap (Boostrix)tetanus, diptheria toxoid & acellular pertussis 52050 Given 02/02/2017 Fluzone Highdose Age 65 And Given at [facility] Over Preservative & Chopper Antibiotic Free 38154 Given 07/05/2016 Pneumococcal 23 Immunization Im inj completed, Pt [id number] Adult Or Immunosuppressed tolerated well Patient Q2037 Given 12/30/2015 Fluvirin Immunization [facility] At [facility] [address]124 Given 01/05/2015 Prevnar 13 Pneumococal Im inj completed, Pt [id number] Conjugate Vaccine tolerated well 90950 Given 01/16/2013 Afluria Or Fluvirin Flu Vac Intramuscular 55111 Given 03/20/2006 Afluria Or Fluvirin Flu Vac [id number] Intramuscular 92949 Refused 04/25/2018 Shingrix (Shingles) Zoster Vaccine HZV, Recombinant , Subunit, Adj Vital Signs Date Vital Result Comment 11/07/2018 8:39am Weight 214.56 lb Heart Rate 78 /min BP Systolic 132 mmHg BP Diastolic 84 mmHg Respiratory Rate 18 /min Height 69 inches 5'9" BMI (Body Mass Index) 31.7 kg/m2 09/09/2018 7:47am Heart Rate 50 /min BP Systolic 152 mmHg BP Diastolic 79 mmHg Respiratory Rate 18 /min 08/05/2018 8:03am Weight 215.00 lb Heart Rate 70 /min BP Systolic 112 mmHg R/Large BP Diastolic 70 mmHg R/Large Respiratory Rate 18 /min Height 69 inches 5'9" BMI (Body Mass Index) 31.7 kg/m2 07/29/2018 8:03am Weight 215.00 lb Heart Rate 60 /min BP Systolic 147 mmHg BP Diastolic 85 mmHg Height 69 inches 5'9" BMI (Body Mass Index) 31.7 kg/m2 07/10/2018 9:22am Body Temperature 97.0 F Weight 216.00 lb Heart Rate 82 /min BP Systolic 136 mmHg BP Diastolic 84 mmHg Respiratory Rate 18 /min Height 69 inches 5'9" O2 % BldC Oximetry 98 % Ra BMI (Body Mass Index) 31.9 kg/m2 04/25/2018 4:56pm Weight 218.00 lb Heart Rate 88 /min BP Systolic 138 mmHg BP Diastolic 76 mmHg Respiratory Rate 18 /min Height 69 inches 5'9" O2 % BldC Oximetry 94 % Ra BMI (Body Mass Index) 32.2 kg/m2 03/29/2018 11:36am Weight 218.00 lb Heart Rate 60 /min BP Systolic 135 mmHg BP Diastolic 78 mmHg 01/25/2018 10:07am Heart Rate 68 /min BP Systolic 127 mmHg BP Diastolic 67 mmHg Respiratory Rate 18 /min 01/21/2018 4:19pm Weight 218.00 lb Heart Rate 80 /min BP Systolic 138 mmHg BP Diastolic 84 mmHg Respiratory Rate 16 /min Height 69 inches 5'9" BMI (Body Mass Index) 32.2 kg/m2 01/07/2018 10:50am Weight 221.44 lb Heart Rate 80 /min BP Systolic 130 mmHg BP Diastolic 80 mmHg Respiratory Rate 18 /min Height 69 inches 5'9" BMI (Body Mass Index) 32.7 kg/m2 12/17/2017 8:01am Weight 213.00 lb Heart Rate 54 /min BP Systolic 124 mmHg BP Diastolic 75 mmHg Height 69 inches 5'9" BMI (Body Mass Index) 31.5 kg/m2 10/17/2017 7:49am Weight 213.00 lb Heart Rate 53 /min BP Systolic 155 mmHg BP Diastolic 81 mmHg Height 69 inches 5'9" BMI (Body Mass Index) 31.5 kg/m2 10/11/2017 8:28am Weight 213.00 lb Heart Rate 68 /min BP Systolic 130 mmHg BP Diastolic 79 mmHg Respiratory Rate 18 /min Height 69 inches 5'9" 10/11/17 BMI (Body Mass Index) 31.5 kg/m2 08/24/2017 1:44pm Weight 209.00 lb Heart Rate 64 /min BP Systolic 138 mmHg BP Diastolic 88 mmHg Respiratory Rate 17 /min Height 69 inches 5'9" BMI (Body Mass Index) 30.9 kg/m2 08/03/2017 7:38am Heart Rate 52 /min BP Systolic 102 mmHg BP Diastolic 82 mmHg Respiratory Rate 18 /min 07/09/2017 9:29am Weight 224.00 lb Heart Rate 76 /min BP Systolic 130 mmHg BP Diastolic 70 mmHg Respiratory Rate 18 /min Height 69 inches 5'9"07/09/17 BMI (Body Mass Index) 33.1 kg/m2 04/27/2017 7:32am Weight 215.00 lb Heart Rate 55 /min BP Systolic 172 mmHg BP Diastolic 92 mmHg Height 69 inches 5'9" BMI (Body Mass Index) 31.7 kg/m2 04/12/2017 1:59pm Weight 218.00 lb Heart Rate 72 /min BP Systolic 126 mmHg BP Diastolic 78 mmHg Respiratory Rate 18 /min Height 69 inches 5'9" BMI (Body Mass Index) 32.2 kg/m2 03/14/2017 7:43am Weight 205.00 lb Heart Rate 52 /min BP Systolic 133 mmHg BP Diastolic 78 mmHg Height 69 inches 5'9" BMI (Body Mass Index) 30.3 kg/m2 02/02/2017 1:25pm Heart Rate 76 /min BP Systolic 139 mmHg BP Diastolic 88 mmHg Height 69 inches 5'9" (07/04/16) 01/22/2017 1:30pm Body Temperature 98.1 F Weight 207.31 lb Heart Rate 76 /min BP Systolic 128 mmHg BP Diastolic 82 mmHg Respiratory Rate 18 /min Height 69 inches 5'9" (07/04/16) BMI (Body Mass Index) 30.6 kg/m2 01/03/2017 11:10am Weight 210.50 lb Heart Rate 78 /min 80 Reg BP Systolic 130 mmHg BP Diastolic 78 mmHg BP Systolic Recheck 110 mmHg BP Diastolic Recheck 78 mmHg Respiratory Rate 18 /min Height 69 inches 5'9" (07/04/16) BMI (Body Mass Index) 31.1 kg/m2 10/16/2016 8:19am Weight 214.00 lb Height 69 inches 5'9" (07/04/16) BMI (Body Mass Index) 31.6 kg/m2 10/05/2016 8:29am Weight 214.00 lb Heart Rate 76 /min 72 Reg BP Systolic 122 mmHg BP Diastolic 80 mmHg BP Systolic Recheck 128 mmHg BP Diastolic Recheck 80 mmHg Respiratory Rate 18 /min Height 69 inches 5'9" (07/04/16) BMI (Body Mass Index) 31.6 kg/m2 09/11/2016 7:19am Weight 218.00 lb Height 69 inches 5'9" (07/04/16) BMI (Body Mass Index) 32.2 kg/m2 07/05/2016 8:57am Weight 219.00 lb Heart Rate 72 /min BP Systolic 130 mmHg BP Diastolic 82 mmHg BP Systolic Recheck 130 mmHg BP Diastolic Recheck 82 mmHg Respiratory Rate 18 /min Height 69 inches 5'9" (07/04/16) BMI (Body Mass Index) 32.3 kg/m2 05/03/2016 10:49am Weight 210.00 lb Height 69 inches 5'9" BMI (Body Mass Index) 31.0 kg/m2 04/26/2016 8:35am Weight 210.00 lb Heart Rate 61 /min BP Systolic 141 mmHg BP Diastolic 82 mmHg Respiratory Rate 16 /min Height 69 inches 5'9" BMI (Body Mass Index) 31.0 kg/m2 04/25/2016 10:42am Weight 210.00 lb Heart Rate 59 /min BP Systolic 132 mmHg BP Diastolic 78 mmHg Respiratory Rate 16 /min Height 69 inches 5'9" BMI (Body Mass Index) 31.0 kg/m2 04/04/2016 8:31am Weight 212.44 lb Heart Rate 72 /min 72 Reg BP Systolic 120 mmHg BP Diastolic 78 mmHg BP Systolic Recheck 120 mmHg BP Diastolic Recheck 80 mmHg Respiratory Rate 18 /min Height 69 inches 5'9" (12/30/15) BMI (Body Mass Index) 31.4 kg/m2 12/30/2015 11:25am Weight 208.00 lb BP Systolic 128 mmHg BP Diastolic 78 mmHg Height 69 inches 5'9" (12/30/15) BMI (Body Mass Index) 30.7 kg/m2 12/02/2015 8:19am Weight 204.00 lb Heart Rate 72 /min 72 Reg BP Systolic 122 mmHg BP Diastolic 80 mmHg BP Systolic Recheck 116 mmHg BP Diastolic Recheck 80 mmHg Respiratory Rate 18 /min 10/14/2015 10:14am Weight 206.00 lb Heart Rate 78 /min BP Systolic 110 mmHg BP Diastolic 70 mmHg Respiratory Rate 18 /min 10/07/2015 11:30am Weight 208.00 lb Heart Rate 78 /min BP Systolic 130 mmHg BP Diastolic 80 mmHg Respiratory Rate 18 /min Height 69 inches 5'9" BMI (Body Mass Index) 30.7 kg/m2 07/30/2015 8:19am Weight 215.00 lb Heart Rate 72 /min 72 Reg BP Systolic 128 mmHg BP Diastolic 70 mmHg BP Systolic Recheck 120 mmHg BP Diastolic Recheck 70 mmHg Respiratory Rate 18 /min Height 69 inches 5'9" BMI (Body Mass Index) 31.7 kg/m2 07/08/2015 11:13am Weight 216.00 lb Heart Rate 72 /min BP Systolic 130 mmHg BP Diastolic 90 mmHg Respiratory Rate 18 /min 03/25/2015 1:23pm Weight 217.12 lb Heart Rate 78 /min 72 Reg BP Systolic 128 mmHg BP Diastolic 68 mmHg BP Systolic Recheck 120 mmHg BP Diastolic Recheck 70 mmHg Respiratory Rate 24 /min 01/05/2015 1:52pm Weight 214.00 lb Heart Rate 72 /min 72 Reg BP Systolic Recheck 140 mmHg BP Diastolic Recheck 80 mmHg Height 68.75 inches 5'8.75" BMI (Body Mass Index) 31.8 kg/m2 10/07/2014 9:09am Weight 207.00 lb Heart Rate 78 /min 68 Reg BP Systolic 148 mmHg BP Diastolic 80 mmHg BP Systolic Recheck 130 mmHg BP Diastolic Recheck 72 mmHg Respiratory Rate 18 /min 07/06/2014 10:16am Weight 218.00 lb Heart Rate 72 /min 72 Reg BP Systolic 110 mmHg BP Diastolic 80 mmHg BP Systolic Recheck 128 mmHg BP Diastolic Recheck 80 mmHg Respiratory Rate 18 /min Height 68.75 inches 5'8.75" BMI (Body Mass Index) 32.4 kg/m2 06/02/2014 9:32am Body Temperature 97.2 F Weight 208.00 lb Heart Rate 66 /min BP Systolic 130 mmHg BP Diastolic 72 mmHg Respiratory Rate 18 /min Height 68.75 inches 5'8.75" BMI (Body Mass Index) 30.9 kg/m2 04/28/2014 9:20am Weight 210.00 lb Heart Rate 72 /min BP Systolic 116 mmHg BP Diastolic 80 mmHg Respiratory Rate 18 /min Height 68.75 inches 5'8.75" BMI (Body Mass Index) 31.2 kg/m2 04/22/2014 9:56am Weight 202.00 lb Heart Rate 78 /min BP Systolic 124 mmHg BP Diastolic 80 mmHg Respiratory Rate 18 /min 04/07/2014 11:11am Weight 207.00 lb Heart Rate 66 /min BP Systolic 130 mmHg BP Diastolic 70 mmHg Respiratory Rate 18 /min Height 68.75 inches 5'8.75" 02/19/2014 9:59am BP Systolic 120 mmHg BP Diastolic 78 mmHg 02/19/2014 9:59am Heart Rate 78 /min 72 Reg BP Systolic 130 mmHg BP Diastolic 70 mmHg Respiratory Rate 18 /min 02/06/2014 11:31am Weight 203.00 lb Heart Rate 72 /min BP Systolic 110 mmHg BP Diastolic 82 mmHg Respiratory Rate 18 /min 01/06/2014 10:57am Weight 204.00 lb Heart Rate 78 /min BP Systolic 118 mmHg BP Diastolic 72 mmHg Respiratory Rate 18 /min 10/17/2013 9:58am BP Systolic 120 mmHg BP Diastolic 80 mmHg 10/17/2013 9:58am Weight 202.00 lb Heart Rate 66 /min 60 Reg BP Systolic 128 mmHg BP Diastolic 82 mmHg Respiratory Rate 18 /min O2 % BldC Oximetry 95 % Ra 07/17/2013 9:31am BP Systolic 120 mmHg BP Diastolic 70 mmHg 07/17/2013 9:31am Weight 198.00 lb Heart Rate 78 /min 72 Reg BP Systolic 120 mmHg BP Diastolic 68 mmHg Respiratory Rate 18 /min Height 68.75 inches 5'8.75" Results Test Date Facility Test Result H/L Range Note Microalb/Creat Panel 11/07/2018 [facility] Creatinine, Urine 118.7 mg/dL 1 Microalbumin < 7.0 ug/ml 5.0-20.0 Hemoglobin A1c 10/31/2018 [facility] Hemoglobin A1c 8.0 % High 4.1-5.9 2 Estimated Average Glucose Calc 183 mg/dL High 71-140 Lipid Treatment 10/31/2018 [facility] Cholesterol 160 mg/dL 50-199 Triglycerides 191 mg/dL 30-200 HDL 40 mg/dL 29-71 3 Chol/ HDL Ratio 4.0 ratio 4.0-6.7 VLDL 38 mg/dL High 2-29 LDL (Calc) 82 mg/dL 20-99 4 Alt 20 U/L 3-42 Ast 16 U/L 8-42 Basic (BMP) 10/31/2018 [facility] Sodium 136 mmol/L 135-146 5 Potassium 4.6 mmol/L 3.5-5.2 Chloride# 99 mmol/L 97-110 6 Carbon Dioxide 25 mmol/L 24-34 Glucose 220 mg/dL High 70-105 BUN 20 mg/dL 6-26 Creatinine 1.1 mg/dL 0.5-1.4 Calcium 9.6 mg/dL 8.5-10.5 7 Female Egfr 52 Low >60 8 Male Egfr 69 >60 9 Anion Gap 12 mmol/L 5-15 10 Drugs Of 08/05/2018 [facility] Amphetamines,Urine NEGATIVE <1000 [...] Average Glucose Calc 183 mg/dL High 71-140 Laboratory test finding 04/18/2018 [facility] TSH 1.73 uIU/mL 0.35-4.94 17 CBC with Auto Diff-fcmg 04/18/2018 [facility] WBC 7.6 K/uL 4.1-11.0 RBC 4.55 M/uL Low 4.60-6.10 Hemoglobin 15.2 gm/dL 13.5-18.0 Hematocrit 43.1 % 41.0-53.0 MCV 94.9 fL 80.0-97.0 MCH 33.5 pg High 27.0-32.0 MCHC 35.3 g/dL 32.0-36.0 RDW 12.7 % 11.5-14.5 PLT Count 174 K/ul 140-400 MPV 9.8 FL 7.1-10.7 Neutrophil 60.0 % 35.0-75.0 Lymphocyte 28.9 % 16.0-52.0 Monocyte 8.6 % 2.0-10.0 Eosinophil 1.7 % 0.0-5.0 Basophil 0.8 % 0.0-4.0 Abs Neutrophils 4.6 K/uL 2.1-8.0 Abs Lymphocytes 2.2 K/uL 0.8-5.5 Abs Monocytes 0.7 K/uL 0.1-1.0 Abs Eosinophils 0.1 K/uL 0.0-0.5 Abs Basophils 0.1 K/uL 0.0-0.3 Lipid Treatment 04/18/2018 [facility] Cholesterol 142 mg/dL 50-199 Triglycerides 187 mg/dL 30-200 HDL 36 mg/dL 29-71 18 Chol/ HDL Ratio 3.9 ratio Low 4.0-6.7 VLDL 37 mg/dL High 2- LDL (Calc) 68 mg/dL 20-99 19 Alt 26 U/L 3-42 Ast 17 U/L 8- Hemoglobin A1c 04/18/2018 [facility] Hemoglobin A1c 7.3 % High 4.1-5.9 Estimated Average Glucose Calc 163 mg/dL High 71-140 Basic ([facility]) 04/18/2018 [facility] Sodium 137 mmol/L 135-146 20 Potassium 4.6 mmol/L 3.5-5.2 Chloride# 100 mmol/L 97-110 21 Carbon Dioxide 31 mmol/L 24-34 Glucose 200 mg/dL High 70-105 BUN 20 mg/dL 6-26 Creatinine 1.1 mg/dL 0.5-1.4 Calcium 9.6 mg/dL 8.5-10.2 Non Arleen Egfr >60 >60 22 Arleen Egfr >60 >60 23 Anion Gap 6 mmol/L 5-15 24 Hemoglobin A1c 01/07/2018 [facility] Hemoglobin A1c 7.7 % High 4.1-5.9 Estimated Average Glucose Calc 174 mg/dL High 71-140 Basic ([facility]) 01/07/2018 [facility] Sodium 135 mmol/L 135-146 25 Potassium 4.4 mmol/L 3.5-5.2 Chloride# 99 mmol/L 97-110 26 Carbon Dioxide 26 mmol/L 24-34 Glucose 284 mg/dL High 70-105 BUN 15 mg/dL 6-26 Creatinine 1.1 mg/dL 0.5-1.4 Calcium 9.1 mg/dL 8.5-10.2 Non Arleen Egfr >60 >60 27 Arleen Egfr >60 >60 28 Anion Gap 10 mmol/L 5-15 29 Lipid Treatment 10/04/2017 [facility] Cholesterol 131 mg/dL 50-199 30 Triglycerides 213 mg/dL High 30-200 HDL 34 mg/dL 31 Chol/ HDL Ratio 3.8 ratio Low 4.0-6.7 VLDL 43 mg/dL High 2- LDL (Calc) 54 mg/dL -99 32 Alt 25 U/L 3-42 Ast 18 U/L 8- Basic ([facility]) 10/04/2017 [facility] Sodium 138 mmol/L 135-146 33 Potassium 4.4 mmol/L 3.5-5.2 Chloride# 102 mmol/L 97-110 34 Carbon Dioxide 26 mmol/L 24-34 Glucose 191 mg/dL High 70-105 BUN 20 mg/dL 6-26 Creatinine 1.1 mg/dL 0.5-1.4 Calcium 9.5 mg/dL 8.5-10.2 Non Arleen Egfr >60 >60 35 Arleen Egfr >60 >60 36 Anion Gap 10 mmol/L 5-15 37 Microalb/Creat [facility], Urine 168.8 mg/dL 38 Microalbumin < 7.0 ug/ml 5.0-20.0 Hemoglobin A1c 10/04/2017 [facility] A1[facility] 7.5 % High 4.1-5.9 Estimated Average Glucose Calc 169 mg/dL High 71-140 Ua RFX Micro & 08/20/2017 [facility] Urine Color YELLOW Yellow 39 Culture II (315)- - Urine Clarity CLEAR Clear Urine Glucose - Dipstick 100 mg/dL High Negative Urine Bilirubin - Dipstick NEGATIVE Negative Urine Ketone NEGATIVE mg/dL Negative Urine Specific Sheldahl <=1.005 Low 1.010-1.030 Urine Blood NEGATIVE Negative Urine PH 7.0 Normal 6.5-7.5 Urine Protein - Dipstick NEGATIVE mg/dL Negative Urine Urobilinogen - Dipstick 0.2 E.U./dL Normal 0.2-1.0 Urine Nitrite - Dipstick NEGATIVE Negative Urine Leuk Esterase NEGATIVE Negative Source: URINE, CLEAN CAT <SEE NOTE> 40 Hemoglobin A1c [facility]05[facility] A1[facility] 7.2 % High 4.1-5.9 Estimated Average Glucose Calc 160 mg/dL High 71-140 Laboratory test [facility] NON REACTIVE Non Reactive 41 finding Virus Antibody S/CORatio([facility] Basic (BMP) 07/05/2017 [facility] Sodium 135 mmol/L 135-146 42 Potassium 4.1 mmol/L 3.5-5.2 Chloride# 99 mmol/L 97-110 43 Carbon Dioxide 27 mmol/L 24-34 Glucose 180 mg/dL High 70-105 BUN 15 mg/dL 6-26 Creatinine 1.1 mg/dL 0.5-1.4 Calcium 9.3 mg/dL 8.5-10.2 Non Arleen Egfr >60 >60 44 Arleen Egfr >60 >60 45 Anion Gap 9 mmol/L 5-15 46 Hemoglobin A1c 04/05/2017 [facility] Hemoglobin A1c 7.0 % High 4.1-5.9 47 Estimated Average Glucose Calc 154 mg/dL High 71-140 Basic (BMP) 04/05/2017 [facility] Sodium 138 mmol/L 135-146 48 Potassium 4.2 mmol/L 3.5-5.2 Chloride# 101 mmol/L 97-110 49 Carbon Dioxide 28 mmol/L 24-34 Glucose 184 mg/dL High 70-105 Creatinine 1.1 mg/dL 0.5-1.4 Calcium 9.4 mg/dL 8.5-10.2 Non Arleen Egfr >60 >60 50 Arleen Egfr >60 >60 51 Anion Gap 9 mmol/L 7-16 52 BUN 21 mg/dL 6-26 Lipid Treatment 04/05/2017 [facility] Cholesterol 144 mg/dL 50-199 Triglycerides 204 mg/dL High 30-200 HDL 43 mg/dL 29-71 53 Chol/ HDL Ratio 3.4 ratio Low 4.0-6.7 VLDL 41 mg/dL High 2-29 LDL (Calc) 60 mg/dL 20-99 54 Alt 25 U/L 3-42 Ast 16 U/L 8-42 Laboratory test 04/05/2017 [facility] Microalbumin, < 7.0 5.0-20.0 finding Random Urine ug/ml Laboratory test 01/18/2017 [facility] Magnesium 2.1 mg/ dL Normal 1.8-2.4 55 finding (315)- - C-Reactive Protein,Quant 38.5 mg/L High <3.0 CBC 01/18/2017 [facility] White Blood Count 11.4 K/uL High 3.4-10.5 (315)- - Red Blood Count 4.25 M/uL Normal 4.20-5.80 Hemoglobin 13.8 gm/dL Normal 12.8-17.0 Hematocrit 39.4 % Normal 38.0-48.0 Mean Cell Volume 92.7 fl Normal 80.0-96.0 Mean Corpuscular HGB 32.5 pg Normal 27.0-33.0 Mean Corpuscular HGB Conc 35.0 g/dL Normal 31.7-36.0 Platelet Count 231 K/uL Normal 150-400 Red Cell Distri Width %CV 12.4 % Normal 11.6-15.8 Mean Platelet Volume 10.6 fL Normal 6.6-10.6 Glycohemoglobin A1c 01/18/2017 [facility] Glycohemoglobin 7.7 % High 4.2-6.3 56 (315)- - (A1c) eAG 174 mg/dL Comprehensive Metabolic 01/18/2017 [facility] Glucose 196 mg/dL High 74-106 Panel (315)- - BUN 14 mg/dL Normal 7-18 Creatinine 1.1 mg/dL Normal 0.6-1.3 Glom Filtration Rate, Estimate >60 mL/min >60 If >60 mL/min >60 57 BUN/Creat 12.7 ratio Sodium 138 mmol/L Normal 136-145 Potassium 4.1 mmol/L Normal 3.5-5.1 Chloride 102 mmol/L Normal 98-107 Carbon Dioxide 26 mmol/L Normal 21-32 Anion Gap 10 mEq/L Normal 8-16 Calcium 8.7 mg/dL Normal 8.5-10.1 Total Protein 7.2 g/dL Normal 6.4-8.2 Albumin 3.3 g/dL Low 3.4-5.0 Globulin 3.9 g/dL Normal 1.9-4.3 Alb/Glob 0.8 ratio Bilirubin,Total 0.6 mg/dL Normal 0.2-1.0 Sgot/Ast 11 U/L Low 15-37 58 SGPT/Alt 29 U/L Normal 12-78 Alkaline Phosphatase 64 U/L Normal 45-117 Blood Culture 01/17/2017 [facility] Blood Culture NO GROWTH: FINAL 59 (315)- - Aerobic <SEE NOTE> Blood Culture Anaerobic NO GROWTH: FINAL <SEE NOTE> 60 Blood Culture 01/17/2017 [facility] Blood Culture NO GROWTH: FINAL 61 (315)- - Aerobic <SEE NOTE> Blood Culture Anaerobic NO GROWTH: FINAL <SEE NOTE> 62 Aot Request 01/17/2017 [facility] Aot Request Test(s) added 63, 64 (315)- - Tests to be added: crp magnesium ph <SEE NOTE> 65 Ua RFX Micro & 01/17/2017 [facility] Urine Color YELLOW Yellow Culture II (315)- - Urine Clarity CLEAR Clear Urine Glucose - Dipstick NEGATIVE mg/dL Negative Urine Bilirubin - Dipstick NEGATIVE Negative Urine Ketone NEGATIVE mg/dL Negative Urine Specific Sheldahl 1.015 Normal 1.010-1.030 Urine Blood NEGATIVE Negative Urine PH 6.5 Normal 6.5-7.5 Urine Protein - Dipstick NEGATIVE mg/dL Negative Urine Urobilinogen - Dipstick 0.2 E.U./dL Normal 0.2-1.0 Urine Nitrite - Dipstick NEGATIVE Negative Urine Leuk Esterase NEGATIVE Negative Source: URINE, CLEAN CAT <SEE NOTE> 66 Comprehensive Metabolic 01/17/2017 [facility] Glucose 203 mg/dL High 74-106 Panel (315)- - BUN 20 mg/dL High 7-18 Creatinine 1.2 mg/dL Normal 0.6-1.3 Glom Filtration Rate, Estimate >60 mL/min >60 If >60 mL/min >60 67 BUN/Creat 16.6 ratio Sodium 137 mmol/L Normal 136-145 Potassium 4.1 mmol/L Normal 3.5-5.1 Chloride 101 mmol/L Normal 98-107 Carbon Dioxide 28 mmol/L Normal 21-32 Anion Gap 8 mEq/L Normal 8-16 Calcium 9.1 mg/dL Normal 8.5-10.1 Total Protein 8.2 g/dL Normal 6.4-8.2 Albumin 3.8 g/dL Normal 3.4-5.0 Globulin 4.4 g/dL High 1.9-4.3 Alb/Glob 0.9 ratio Bilirubin,Total 0.5 mg/dL Normal 0.2-1.0 Sgot/Ast 12 U/L Low 15-37 68 SGPT/Alt 36 U/L Normal 12-78 Alkaline Phosphatase 87 U/L Normal 45-117 Laboratory test 01/17/2017 [facility] Lipase 86 U/L Normal 56-289 finding (315)- - Phosphorous 3.1 mg/dL Normal 2.5-4.0 Magnesium 2.0 mg/dL Normal 1.8-2.4 C-Reactive Protein,Quant 15.8 mg/L High <3.0 CBS W/Automated 01/17/2017 [facility] White Blood 18.1 K/ uL High 3.4-10.5 Diff (315)- - Count Red Blood Count 4.55 M/uL Normal 4.20-5.80 Hemoglobin 14.7 gm/dL Normal 12.8-17.0 Hematocrit 41.4 % Normal 38.0-48.0 Mean Cell Volume 91.0 fl Normal 80.0-96.0 Mean Corpuscular HGB 32.3 pg Normal 27.0-33.0 Mean Corpuscular HGB Conc 35.5 g/dL Normal 31.7-36.0 Platelet Count 252 K/uL Normal 150-400 Red Cell Distri Width SD 40.1 fl Normal 36-51 Red Cell Distri Width %CV 12.4 % Normal 11.6-15.8 Mean Platelet Volume 10.5 fL Normal 6.6-10.6 Neut% 76.7 % High 33.0-73.0 Lymph % 13.4 % Low 20.0-42.0 Gila % 9.1 % Normal 0.0-10.0 Eo% 0.6 % Normal 0.0-6.6 Bas% 0.2 % Normal 0.0-1.1 Neut# 13.87 K/uL High 1.8-7.0 Lymph # 2.42 K/uL Normal 1.0-4.0 Gila # 1.64 K/uL High 0.0-0.8 Eos # 0.10 K/uL Normal 0.0-0.5 Baso # 0.03 K/uL Normal 0.0-0.1 Slide Review 01/17/2017 [facility] Slide Review (SEE NOTE ) 69 (315)- - Hemoglobin A1c 09/28/2016 [place] Hemoglobin A1c 7.0 % High 4.1-6.5 70 Estimated Average Glucose Calc 154 High 71-140 Lipid Treatment 09/28/2016 [place] Cholesterol 114 mg/dL 50-199 Triglycerides 188 mg/dL High 30-150 HDL 29 mg/dL Low 40-71 71 Chol/ HDL Ratio 3.9 ratio Low 4.0-6.7 VLDL 38 mg/dL High 2-29 LDL (Calc) 47 mg/dL 20-99 72 Alt 41 U/L 3-42 Ast 29 U/L 8-42 CBC With Auto Diff 09/28/2016 [place] WBC 8.3 K/uL 4.1-11.0 RBC 4.46 M/uL Low 4.60-6.10 Hemoglobin 14.4 gm/dL 13.5-18.0 Hematocrit 41.6 % 41.0-53.0 MCV 93.4 fL 80.0-97.0 MCH 32.2 pg High 27.0-32.0 MCHC 34.5 g/dL 32.0-36.0 RDW 12.8 % 11.5-14.5 PLT Count 214 K/ul 140-400 Neutrophil 55.3 % 35.0-75.0 Lymphocyte 32.3 % 16.0-52.0 Monocyte 9.0 % 2.0-10.0 Eosinophil 2.3 % 0.0-5.0 Basophil 1.1 % 0.0-4.0 Abs Neutrophils 4.6 K/uL 2.1-8.0 Abs Lymphocytes 2.7 K/uL 0.8-5.5 Abs Monocytes 0.7 K/uL 0.1-1.0 Abs Eosinophils 0.2 K/uL 0.0-0.5 Abs Basophils 0.1 K/uL 0.0-0.3 Basic (BMP) 09/28/2016 [place] Sodium 139 mmol/L 135-146 73 Potassium 4.7 mmol/L 3.5-5.2 Chloride# 102 mmol/L 97-110 74 Carbon Dioxide 25 mmol/L 24-34 Glucose 185 mg/dL High 70-105 BUN 25 mg/dL 6-26 Creatinine 1.1 mg/dL 0.5-1.4 Calcium 9.2 mg/dL 8.5-10.2 Non Arleen Egfr >60 >60 75 Arleen Egfr >60 >60 76 Anion Gap 17 mmol/L High 7-16 77 Laboratory test 09/28/2016 [place] Microalbumin, 6.2 ug/ml 0.0-20.0 finding Random Urine Order 08/10/2016 Other EMG w/Nerve <pending> [phone] Conduct Study, Lower CBC With Auto 03/27/2016 [facility] White Blood Count 8.5 K/uL Normal 3.4-10.5 78 Diff (315)- - Red Blood Count 4.77 M/uL Normal 4.20-5.80 Hemoglobin 15.4 gm/dL Normal 12.8-17.0 Hematocrit 44.0 % Normal 38.0-48.0 Mean Cell Volume 92.2 fl Normal 80.0-96.0 Mean Corpuscular HGB 32.3 pg Normal 27.0-33.0 Mean Corpuscular HGB Conc 35.0 g/dL Normal 31.7-36.0 Platelet Count 233 K/uL Normal 150-400 Red Cell Distri Width SD 42.8 fl Normal 36-51 Red Cell Distri Width %CV 13.0 % Normal 11.6-15.8 Mean Platelet Volume 11.0 fL High 6.6-10.6 Neut% 57.1 % Normal 33.0-73.0 Lymph % 34.0 % Normal 17.0-56.0 Gila % 6.6 % Normal 0.0-10.0 Eo% 1.7 % Normal 0.0-5.0 Bas% 0.6 % Normal 0.1-1.0 Neut# 4.83 K/uL Normal 1.8-7.0 Lymph # 2.88 K/uL Normal 1.8-7.0 Gila # 0.56 K/uL Normal 0.0-0.8 Eos # 0.14 K/uL Normal 0.0-0.5 Baso # 0.05 K/uL Low 0.1-0.2 Basic (BMP) 03/27/2016 [facility] Glucose 144 mg/dL High 74-106 (315)- - BUN 20 mg/dL High 7-18 Creatinine 1.1 mg/dL Normal 0.6-1.3 Glom Filtration Rate, Estimate >60 mL/min Normal >60 If >60 mL/min Normal >60 79 BUN/Creat 18.1 ratio Normal Sodium 141 mmol/L Normal 136-145 Potassium 4.5 mmol/L Normal 3.5-5.1 Chloride 106 mmol/L Normal 98-107 Carbon Dioxide 27 mmol/L Normal 21-32 Anion Gap 8 mEq/L Normal 8-16 Calcium 9.2 mg/dL Normal 8.5-10.1 Hemoglobin A1c 03/27/2016 [facility] Glycohemoglobin (A1c ) 6.4 % 4.2-6.5 80 (315)- - eAG 137 mg/dL Normal LDL Cholesterol 03/27/2016 [facility] Cholesterol 113 mg/ dL Normal <200 81 Profile (315)- - Triglycerides 193 mg/dL High <150 82 HDL Cholesterol 32 mg/dL Low >40 83 LDL-Cholesterol 42 mg/dL Normal < 100 84 Microalbumin,Random 03/27/2016 [facility] Microalbumin, Urine 8.6 Normal < Urine (315)- - mg/L 20.0 Glycohemoglobin A1c 07/22/2015 [facility] Glycohemoglobin 6.8 % High 4.2-6 85 (315)- - (A1c) .5 eAG 148 mg/dL BMP (Basic) 07/22/2015 [facility] Glucose 150 mg/dL High 74-106 (315)- - BUN 19 mg/dL High 7-18 Creatinine 1.0 mg/dL 0.6-1.3 Glom Filtration Rate, Estimate >60 mL/min >60 If >60 mL/min >60 86 BUN/Creat 19.0 ratio Sodium 135 mmol/L 135-145 Potassium 4.1 mmol/L 3.5-5.1 Chloride 103 mmol/L 98-107 Carbon Dioxide 25 mmol/L 21-32 Anion Gap 7 mEq/L Low 8-16 Calcium 8.5 mg/dL 8.5-10.1 Laboratory test 07/22/2015 [facility] Magnesium 1.6 mg/ dL Low 1.8-2.4 finding (315)- - Liver Function 07/22/2015 [facility] Total Protein 7.3 g/ dL 6.4-8.2 Tests (315)- - Albumin 3.9 g/dL 3.4-5.0 Globulin 3.4 g/dL 1.9-4.3 Alb/Glob 1.1 ratio Bilirubin,Total 0.6 mg/dL 0.2-1.0 Bilirubin,Direct 0.1 mg/dL 0.0-0.2 Bilirubin,Indirect 0.5 mg/dL 0.0-0.9 Sgot/Ast 31 U/L 15-37 SGPT/Alt 54 U/L 12-78 Alkaline Phosphatase 72 U/L 45-117 LDL Cholesterol 07/22/2015 [facility] Cholesterol 111 mg/ dL <200 87 Profile (315)- - Triglycerides 181 mg/dL High <150 88 HDL Cholesterol 25 mg/dL Low >40 89 LDL-Cholesterol 50 mg/dL < 100 90 CBC 07/22/2015 [facility] White Blood Count 8.2 K/uL 3.4-10.5 (315)- - Red Blood Count 4.37 M/uL 4.20-5.80 Hemoglobin 14.1 gm/dL 12.8-17.0 Hematocrit 40.3 % 38.0-48.0 Mean Cell Volume 92.2 fl 80.0-96.0 Mean Corpuscular HGB 32.3 pg 27.0-33.0 Mean Corpuscular HGB Conc 35.0 g/dL 31.7-36.0 Platelet Count 221 K/uL 150-400 Red Cell Distri Width %CV 13.0 % 11.6-15.8 Mean Platelet Volume 10.9 fL High 6.6-10.6 Urine Screen 07/22/2015 [facility] Urine Color YELLOW Yellow (315)- - Urine Clarity CLEAR Clear Urine Glucose - Dipstick NEGATIVE mg/dL Negative Urine Bilirubin - Dipstick NEGATIVE Negative Urine Ketone NEGATIVE mg/dL Negative Urine Specific Sheldahl 1.015 1.010-1.030 Urine Blood NEGATIVE Negative Urine PH 7.0 6.5-7.5 Urine Protein - Dipstick NEGATIVE mg/dL Negative Urine Urobilinogen - Dipstick 0.2 E.U./dL 0.2-1.0 Urine Nitrite - Dipstick NEGATIVE Negative Urine Leuk Esterase NEGATIVE Negative Microalbumin,Random 09/30/2014 [facility] Microalbumin, Urine < 6.0 < 20.0 Urine (315)- - mg/L CBC W/Automated Diff 09/30/2014 [facility] White Blood Count 10.6 High 3.4-10 (315)- - K/uL .5 Red Blood Count 4.48 M/uL 4.20-5.80 Hemoglobin 14.9 gm/dL 12.8-17.0 Hematocrit 41.2 % 38.0-48.0 Mean Cell Volume 92.0 fl 80.0-96.0 Mean Corpuscular HGB 33.3 pg High 27.0-33.0 Mean Corpuscular HGB Conc 36.2 g/dL High 31.7-36.0 Platelet Count 223 K/uL 150-400 Red Cell Distri Width SD 41.5 fl 36-51 Red Cell Distri Width %CV 12.5 % 11.6-15.8 Mean Platelet Volume 11.2 fL High 6.6-10.6 Neut% 58.9 % 33.0-73.0 Lymph % 30.4 % 17.0-56.0 Gila % 8.8 % 0.0-10.0 Eo% 1.5 % 0.0-5.0 Bas% 0.4 % 0.1-1.0 Neut# 6.21 K/uL 1.8-7.0 Lymph # 3.21 K/uL 1.8-7.0 Gila # 0.93 K/uL High 0.0-0.8 Eos # 0.16 K/uL 0.0-0.5 Baso # 0.04 K/uL Low 0.1-0.2 Basic Metabolic Panel 09/30/2014 [facility] Glucose 140 mg/dL High 74-106 (315)- - BUN 22 mg/dL High 7-18 Creatinine 1.2 mg/dL 0.6-1.3 Glom Filtration Rate, Estimate >60 mL/min >60 If >60 mL/min >60 91 BUN/Creat 18.3 ratio Sodium 135 mmol/L 135-145 Potassium 3.9 mmol/L 3.5-5.1 Chloride 100 mmol/L 98-107 Carbon Dioxide 27 mmol/L 21-32 Anion Gap 8 mEq/L 8-16 Calcium 8.7 mg/dL 8.5-10.1 LDL Cholesterol 09/30/2014 [facility] Cholesterol 146 mg/ dL < 200 92 Profile (315)- - Triglycerides 220 mg/dL High < 150 93 HDL Cholesterol 32 mg/dL Low > 40 94 LDL-Cholesterol 70 mg/dL < 100 95 Glycohemoglobin A1c 09/30/2014 [facility] Glycohemoglobin 6.7 % High 4.2-6.5 96 (315)- - (A1c) eAG 146 mg/dL Liver Function 09/30/2014 [facility] Total Protein 7.4 g/ dL 6.4-8.2 Tests (315)- - Albumin 4.1 g/dL 3.4-5.0 Globulin 3.3 g/dL 1.9-4.3 Alb/Glob 1.2 ratio Bilirubin,Total 0.6 mg/dL 0.2-1.0 Bilirubin,Direct < 0.1 mg/dL 0.0-0.2 Bilirubin,Indirect 0.5 mg/dL 0.0-0.9 Sgot/Ast 20 U/L 15-37 SGPT/Alt 38 U/L 12-78 Alkaline Phosphatase 63 U/L 45-117 Laboratory test finding 02/10/2014 N2N/CCD Import Anion Gap 8 mEq/L 8- 16 BUN 19 mg/dL High 7-18 BUN/Creat 15.8 ratio Bas% 0.5 % 0.1-1.0 Baso # 0.04 K/uL Low 0.1-0.2 Calcium 8.9 mg/dL 8.5-10.1 Carbon Dioxide 28 mmol/L 21-32 Chloride 105 mmol/L 98-107 Creatinine 1.2 mg/dL 0.6-1.3 Eo% 1.8 % 0.0-5.0 Eos # 0.14 K/uL 0.0-0.5 Glom Filtration Rate, Estimate >60 mL/min >60 Glucose 156 mg/dL High 74-106 Glycohemoglobin (A1c) 7.4 % High 4.2-6.3 97 Hematocrit 41.3 % 38.0-48.0 Hemoglobin 14.8 gm/dL 12.8-17.0 If >60 mL/min >60 98 Lymph # 2.10 K/uL 1.2-4.0 Lymph % 26.7 % 17.0-56.0 Mean Cell Volume 91.2 fl 80.0-96.0 Mean Corpuscular HGB 32.7 pg 27.0-33.0 Mean Corpuscular HGB Conc 35.8 g/dL 31.7-36.0 Mean Platelet Volume 11.2 fL High 6.6-10.6 Microalbumin,Random Urine 7.7 mg/L < 20.0 Gila # 0.73 K/uL High 0.0-0.6 Gila % 9.3 % 0.0-10.0 Neut# 4.86 K/uL 1.8-7.0 Neut% 61.7 % 33.0-73.0 Platelet Count 231 K/uL 150-400 Potassium 4.2 mmol/L 3.5-5.1 Red Blood Count 4.53 M/uL 4.20-5.80 Red Cell Distri Width %CV 12.4 % 11.6-15.8 Red Cell Distri Width SD 40.1 fl 36-51 SGPT/Alt 37 U/L 12-78 Sgot/Ast 16 U/L 15-37 Sodium 137 mmol/L 136-145 White Blood Count 7.9 K/uL 3.4-10.5 eAG 166 mg/dL LDL Cholesterol Profile 02/10/2014 N2N/CCD Import Cholesterol 128 mg/dL 60-199 99 HDL Cholesterol 33 mg/dL Low 40-60 100 LDL-Cholesterol 60 mg/dL 30-99 101 Triglycerides 177 mg/dL High 60-150 102 Laboratory test 07/15/2013 N2N/CCD Import Troponin-I 0.19 ng/mL 0.00- 0.50 103 finding Laboratory test 07/14/2013 N2N/CCD Import Troponin-I 0.30 ng/mL 0.00- 0.50 104 finding Laboratory test 07/14/2013 N2N/CCD Import Alb/Glob 1.2 ratio finding Albumin 4.1 g/dL 3.5-5.0 Alkaline Phosphatase 91 U/L 50-136 Anion Gap 12 mEq/L 8-16 BUN 20 mg/dL 5-23 BUN/Creat 20.0 ratio Bilirubin,Total 0.4 mg/dL 0.2-1.2 Calcium 9.0 mg/dL 8.5-10.1 Carbon Dioxide 25 mEq/L 18-29 Chloride 104 mmol/L 98-107 Creatinine 1.0 mg/dL 0.5-1.4 D-Dimer, Quantitative < 0.22 ug/mL 105 Globulin 3.3 g/dL 1.9-4.3 Glom Filtration Rate, Estimate >60 mL/min >60 Glucose 119 mg/dL High 76-115 If >60 mL/min >60 106 Potassium 4.1 mmol/L 3.5-5.1 SGPT/Alt 41 U/L 30-65 Sgot/Ast 21 U/L 16-40 Sodium 137 mmol/L 136-145 Total Protein 7.4 g/dL 6.3-8.0 Troponin-I 0.08 ng/mL 0.00-0.50 107 CBS W/Automated Diff 07/14/2013 N2N/CCD Import Bas% 0.6 % 0.1-1.0 Baso # 0.06 K/uL Low 0.1-0.2 Eo% 1.7 % 0.0-5.0 Eos # 0.17 K/uL 0.0-0.5 Hematocrit 40.6 % 38.0-48.0 Hemoglobin 14.8 gm/dL 12.8-17.0 Lymph # 3.32 K/uL 1.2-4.0 Lymph % 32.5 % 17.0-56.0 Mean Cell Volume 90.4 fl 80.0-96.0 Mean Corpuscular HGB 33.0 pg 27.0-33.0 Mean Corpuscular HGB Conc 36.5 g/dL High 31.7-36.0 Mean Platelet Volume 11.1 fL High 6.6-10.6 Gila # 1.00 K/uL High 0.0-0.6 Gila % 9.8 % 0.0-10.0 Neut# 5.66 K/uL 1.8-7.0 Neut% 55.4 % 33.0-73.0 Platelet Count 230 K/uL 150-400 Red Blood Count 4.49 M/uL 4.20-5.80 Red Cell Distri Width %CV 12.5 % 11.6-15.8 Red Cell Distri Width SD 40.9 fl 36-51 White Blood Count 10.2 K/uL 3.4-10.5 Laboratory test finding 07/09/2013 N2N/CCD Import Anion Gap 11 mEq/L 8- 16 BUN 21 mg/dL 5-23 BUN/Creat 23.3 ratio Bas% 0.6 % 0.1-1.0 Baso # 0.04 K/uL Low 0.1-0.2 Calcium 8.6 mg/dL 8.5-10.1 Carbon Dioxide 27 mEq/L 18-29 Chloride 105 mmol/L 98-107 Creatinine 0.9 mg/dL 0.5-1.4 Eo% 2.1 % 0.0-5.0 Eos # 0.14 K/uL 0.0-0.5 Glom Filtration Rate, Estimate >60 mL/min >60 Glucose 153 mg/dL High 76-115 Glycohemoglobin (A1c) 7.3 % High 4.8-6.0 108 Hematocrit 41.7 % 38.0-48.0 Hemoglobin 14.7 gm/dL 12.8-17.0 If >60 mL/min >60 109 Lymph # 2.32 K/uL 1.2-4.0 Lymph % 34.2 % 17.0-56.0 Magnesium 1.7 mg/dL 1.7-2.3 Mean Cell Volume 91.9 fl 80.0-96.0 Mean Corpuscular HGB 32.4 pg 27.0-33.0 Mean Corpuscular HGB Conc 35.3 g/dL 31.7-36.0 Mean Platelet Volume 11.1 fL High 6.6-10.6 Gila # 0.66 K/uL High 0.0-0.6 Gila % 9.7 % 0.0-10.0 Neut# 3.63 K/uL 1.8-7.0 Neut% 53.4 % 33.0-73.0 Platelet Count 225 K/uL 150-400 Potassium 4.4 mmol/L 3.5-5.1 Red Blood Count 4.54 M/uL 4.20-5.80 Red Cell Distri Width %CV 12.9 % 11.6-15.8 Red Cell Distri Width SD 41.9 fl 36-51 SGPT/Alt 39 U/L 30-65 Sgot/Ast 23 U/L 16-40 Sodium 139 mmol/L 136-145 White Blood Count 6.8 K/uL 3.4-10.5 eAG 163 mg/dL LDL Cholesterol Profile 07/09/2013 N2N/CCD Import Cholesterol 123 mg/dL 120-200 HDL Cholesterol 30 mg/dL Low 40-83 LDL-Cholesterol 60 mg/dL Low 62-99 Triglycerides 165 mg/dL High 16-150 Laboratory test finding 11/19/2012 N2N/CCD Import Anion Gap 12 mEq/L 8- 16 BUN 21 mg/dL 5-23 BUN/Creat 17.5 ratio Calcium 8.7 mg/dL 8.5-10.1 Carbon Dioxide 25 mEq/L 18-29 Chloride 105 mmol/L 98-107 Creatinine 1.2 mg/dL 0.5-1.4 Glom Filtration Rate, Estimate >60 mL/min >60 Glucose 177 mg/dL High 76-115 Glycohemoglobin (A1c) 7.5 % High 4.8-6.0 110 If >60 mL/min >60 111 Magnesium 1.7 mg/dL 1.7-2.3 Microalbumin,Random Urine < 5.0 mg/L 0.0-18.5 Potassium 4.3 mmol/L 3.5-5.1 SGPT/Alt 41 U/L 30-65 Sgot/Ast 20 U/L 16-40 Sodium 138 mmol/L 136-145 Vitamin D,25-Hydroxy 56.3 ng/mL 30.0-100.0 112 eAG 169 mg/dL LDL Cholesterol Profile 11/19/2012 N2N/CCD Import Cholesterol 134 mg/dL 120-200 HDL Cholesterol 29 mg/dL Low 40-83 LDL-Cholesterol 66 mg/dL 62-99 Triglycerides 193 mg/dL High 16-150 Laboratory test 03/21/2012 N2N/CCD Import Antinuclear Abs Ifa Negative . 113 finding CCP Igg Antibodies 3 units 0-19 114 Esr (Sed Rate/Westergren) 3 SEC 0-20 Rheumatoid Factor Screen Negative Negative Laboratory test finding 02/05/2012 N2N/CCD Import Glucose 133 mg/dL High 76-115 115 Glycohemoglobin (A1c) 7.2 % High 4.8-6.0 116 SGPT/Alt 47 U/L 30-65 Sgot/Ast 23 U/L 16-40 eAG 160 mg/dL LDL Cholesterol Profile 02/05/2012 N2N/CCD Import Cholesterol 144 mg/dL 120-200 HDL Cholesterol 30 mg/dL Low 40-83 LDL-Cholesterol 77 mg/dL 62-99 Triglycerides 185 mg/dL High 16-150 LDL Cholesterol Profile 10/27/2011 N2N/CCD Import Cholesterol 179 mg/dL 120-200 HDL Cholesterol 28 mg/dL Low 40-83 LDL-Cholesterol 112 mg/dL High 62-99 Triglycerides 197 mg/dL High 16-150 Laboratory test finding 10/27/2011 N2N/CCD Import Anion Gap 15 mEq/L 8- 16 BUN 21 mg/dL 5-23 BUN/Creat 17.5 ratio Bas% 0.5 % 0.1-1.0 Baso # 0.04 K/uL Low 0.1-0.2 Calcium 8.7 mg/dL 8.5-10.1 Carbon Dioxide 26 mEq/L 18-29 Chloride 104 mmol/L 98-107 Creatinine 1.2 mg/dL 0.5-1.4 Eo% 2.4 % 0.0-5.0 Eos # 0.21 K/uL 0.0-0.5 Glom Filtration Rate, Estimate >60 mL/min >60 Glucose 147 mg/dL High 76-115 Glycohemoglobin (A1c) 7.1 % High 4.8-6.0 117 Hematocrit 43.7 % 38.0-48.0 Hemoglobin 15.2 gm/dL 12.8-17.0 If >60 mL/min >60 118 Lymph # 2.31 K/uL 1.2-4.0 Lymph % 26.9 % 17.0-56.0 Mean Cell Volume 91.4 fl 80.0-96.0 Mean Corpuscular HGB 31.8 pg 27.0-33.0 Mean Corpuscular HGB Conc 34.8 g/dL 31.7-36.0 Mean Platelet Volume 11.3 fL High 6.6-10.6 Microalbumin,Random Urine < 5.0 mg/L 0.0-18.5 Gila # 0.77 K/uL High 0.0-0.6 Gila % 9.0 % 0.0-10.0 Neut# 5.25 K/uL 1.8-7.0 Neut% 61.2 % 33.0-73.0 Platelet Count 223 K/uL 150-400 Potassium 4.5 mmol/L 3.5-5.1 Red Blood Count 4.78 M/uL 4.20-5.80 Red Cell Distri Width %CV 13.0 % 11.6-15.8 Red Cell Distri Width SD 42.2 fl 36-51 Sodium 140 mmol/L 136-145 Vitamin D,25-Hydroxy 65.9 ng/mL 30.0-100.0 119 White Blood Count 8.6 K/uL 3.4-10.5 eAG 157 mg/dL LDL Cholesterol Profile 02/08/2011 N2N/[employer] Import Cholesterol 194 mg/dL 120-200 HDL Cholesterol 31 mg/dL Low 40-83 LDL-Cholesterol 101 mg/dL High 62-99 Triglycerides 312 mg/dL High 16-150 Laboratory test finding 02/08/2011 N2N/CCD Import Anion Gap 11 mEq/L 8- 16 BUN 21 mg/dL 5-23 BUN/Creat 16.1 ratio Calcium 9.2 mg/dL 8.5-10.1 Carbon Dioxide 28 mEq/L 18-29 Chloride 102 mmol/L 98-107 Creatinine 1.3 mg/dL 0.5-1.4 Glom Filtration Rate, Estimate 60 mL/min >60 Glucose 132 mg/dL High 76-115 Glycohemoglobin (A1c) 6.8 % High 4.8-6.0 120 If >60 mL/min >60 121 Microalbumin,Urine 9.3 mg/L 0.0-18.5 Potassium 4.3 mmol/L 3.5-5.1 Sodium 137 mmol/L 136-145 Vitamin D,25-Hydroxy 57.0 ng/mL 32.0-100.0 122 eAG 148 mg/dL Laboratory test 05/25/2010 N2N/[employer] Import Vitamin 22.6 Low 32.0-100.0 123 finding D,25-Hydroxy ng/mL Lipid Panel 05/25/2010 N2N/CCD Import Chol/HDL Ratio 5.3 124, 125 Cholesterol 193 mg/dL 50-199 HDL Cholesterol 36 mg/dL Low 40-67 LDL 97 mg/dL 20-99 Triglycerides 299 mg/dL High 30-150 VLDL Cholesterol 60 mg/dL Laboratory test finding 05/25/2010 N2N/CCD Import Anion Gap 15 mmol/L 10 -20 BUN 17 mg/dL 9-21 BUN/CR Ratio 15.9 Ratio 12-20 Calcium 9.1 mg/dL 8.7-10.5 Carbon Dioxide 28 mmol/L 22-30 Chloride 101 mmol/L 98-107 Creatinine, Serum 1.1 mg/dL 0.8-1.5 Glucose 138 mg/dL High 75-110 Hemoglobin A1c 6.8 % High 4.1-6.5 Potassium 4.8 mmol/L 3.6-5.0 Sodium 139 mmol/L 137-145 Laboratory test 11/25/2009 N2N/CCD Import Microalbumin,Urine < 6.0 mg/L 0.0-15.0 126 finding Microalbumin/Creatinine Ratio See Note 0.0-30.0 127 Urine Creatinine Conc 244 mg/dL 128 1 Unable to calculate ratio. Microalbumin <7.0 [...] by the kidneys. 16 Updated Reference Range 17 3 mo 18 Per NCEP ATP III Guidelines: Results lower than 40 mg/dL are suggestive of increased risk for coronary artery disease. Results > or=to 60 mg/dL are considered a negative risk factor. 19 Per NCEP ATP III Guidelines: Normal Population <130 Patients with medical conditions: CHD/DM Optimal: <100 Borderline high: 130-159 High: 160-189 Very high: >189 20 Updated reference range on new analyzer 21 Updated reference range on new analyzer 22 Concerning GFR Guidelines: Normal function or mild renal disease, if clinically at risk: >/=60 mL/min Moderately decreased: 30-59 Severely decreased: 15-29 Renal failure: <15 Glomerular Filtration Rate (GFR) is estimated based on the MDRD equation, which assumes a steady state for [...] drugs that are excreted by the kidneys. 23 Concerning GFR Guidelines for Americans: Normal function or mild renal disease, if clinically at risk: >/=60 mL/min Moderately decreased: 30-59 Severely decreased: 15-29 Renal failure: <15 24 Updated Reference Range 25 Updated reference range on new analyzer 26 Updated reference range on new analyzer 27 Concerning GFR Guidelines: Normal function or mild renal disease, if clinically at risk: >/=60 mL/min Moderately decreased: 30-59 Severely decreased: 15-29 Renal failure: <15 Glomerular Filtration Rate (GFR) is estimated based on the MDRD equation, which assumes a steady state for [...] drugs that are excreted by the kidneys. 28 Concerning GFR Guidelines for Americans: Normal function or mild renal disease, if clinically at risk: >/=60 mL/min Moderately decreased: 30-59 Severely decreased: 15-29 Renal failure: <15 29 Updated Reference Range 30 3 mos 31 Per NCEP ATP III Guidelines: Results lower than 40 mg/dL are suggestive of increased risk for coronary artery disease. Results > or=to 60 mg/dL are considered a negative risk factor. 32 Per NCEP ATP III Guidelines: Normal Population <130 Patients with medical conditions: CHD/DM Optimal: <100 Borderline high: 130-159 High: 160-189 Very high: >189 33 Updated reference range on new analyzer 34 Updated reference range on new analyzer 35 Concerning GFR Guidelines: Normal function or mild renal disease, if clinically at risk: >/=60 mL/min Moderately decreased: 30-59 Severely decreased: 15-29 Renal failure: <15 Glomerular Filtration Rate (GFR) is estimated based on the MDRD equation, which assumes a steady state for [...] drugs that are excreted by the kidneys. 36 Concerning GFR Guidelines for Americans: Normal function or mild renal disease, if clinically at risk: >/=60 mL/min Moderately decreased: 30-59 Severely decreased: 15-29 Renal failure: <15 37 Updated Reference Range 38 Unable to calculate ratio. Microalbumin <7.0 39 DIVERTICULITIS? 40 URINE, CLEAN CATCH 41 S/CO Ratio >/=1.0 is REACTIVE. S/CO <5.0 is Low Reactive. S/CO >/= 5.0 is High Reactive. Effective Dec 01, 2016 all anti-HCV reactive samples are sent for quantitative PCR confirmation. 42 Updated reference range on new analyzer 43 Updated reference range on new analyzer 44 Concerning GFR Guidelines: Normal function or mild renal disease, if clinically at risk: >/=60 mL/min Moderately decreased: 30-59 Severely decreased: 15-29 Renal failure: <15 Glomerular Filtration Rate (GFR) is estimated based on the MDRD equation, which assumes a steady state for [...] drugs that are excreted by the kidneys. 45 Concerning GFR Guidelines for Americans: Normal function or mild renal disease, if clinically at risk: >/=60 mL/min Moderately decreased: 30-59 Severely decreased: 15-29 Renal failure: <15 46 Updated Reference Range 47 SCHEDULE 1 WEEK PRIOR TO NEXT VISIT 48 Updated reference range on new analyzer 49 Updated reference range on new analyzer 50 Concerning GFR Guidelines: Normal function or mild renal disease, if clinically at risk: >/=60 mL/min Moderately decreased: 30-59 Severely decreased: 15-29 Renal failure: <15 Glomerular Filtration Rate (GFR) is estimated based on the MDRD equation, which assumes a steady state for [...] drugs that are excreted by the kidneys. 51 Concerning GFR Guidelines for Americans: Normal function or mild renal disease, if clinically at risk: >/=60 mL/min Moderately decreased: 30-59 Severely decreased: 15-29 Renal failure: <15 52 Updated reference range on new analyzer 53 Per NCEP ATP III Guidelines: Results lower than 40 mg/dL are suggestive of increased risk for coronary artery disease. Results > or=to 60 mg/dL are considered a negative risk factor. 54 Per NCEP ATP III Guidelines: Normal Population <130 Patients with medical conditions: CHD/DM Optimal: <100 Borderline high: 130-159 High: 160-189 Very high: >189 55 ACUTE DIVERTICULITIS 56 Elevated levels of HbA1c suggest the need for more aggressive treatment of glycemia. The [place] [employer] recommends that a primary goal of therapy should be a HbA1c of <7% and that physicians should re-evaluate the treatment regimen in patients with HbA1c values consistently >8%. 57 Note: Persistent reduction for 3 months or more in an eGFR <60 mL/min/1.73 m2 defines CKD. Patients with eGFR values >/=60 mL/min/1.73 m2 may also have CKD if evidence of persistent proteinuria is present. The original MDRD equation for estimated GFR is not valid for patients less than 18 years of age. Additional information may be found at www.kdoqi.org. 58 Values below the stated reference ranges of AST and ALT can be seen in normal populations. Clinical correlation is suggested. 59 NO GROWTH: FINAL REPORT 60 NO GROWTH: FINAL REPORT 61 NO GROWTH: FINAL REPORT 62 NO GROWTH: FINAL REPORT 63 LOWER ABDOMINAL PAIN 64 Tests: crp magnesium phosphorus Instructions: 65 crp magnesium phosphorus 66 URINE, CLEAN CATCH 67 Note: Persistent reduction for 3 months or more in an eGFR <60 mL/min/1.73 m2 defines CKD. Patients with eGFR values >/=60 mL/min/1.73 m2 may also have CKD if evidence of persistent proteinuria is present. The original MDRD equation for estimated GFR is not valid for patients less than 18 years of age. Additional information may be found at www.kdoqi.org. 68 Values below the stated reference ranges of AST and ALT can be seen in normal populations. Clinical correlation is suggested. 69 Instrument flagged sample for slide review. Less than 10% Bands seen, no other immature WBC's seen. RBC morphology essentially normal. Platelet estimate=NORMAL 70 SCHEDULE 1 WEEK PRIOR TO NEXT VISIT 71 Per NCEP ATP III Guidelines: Results lower than 40 mg/dL are suggestive of increased risk for coronary artery disease. Results > or=to 60 mg/dL are considered a negative risk factor. 72 Per NCEP ATP III Guidelines: Normal Population <130 Patients with medical conditions: CHD/DM Optimal: <100 Borderline high: 130-159 High: 160-189 Very high: >189 73 Updated reference range on new analyzer 74 Updated reference range on new analyzer 75 Concerning GFR Guidelines: Normal function or mild renal disease, if clinically at risk: >/=60 mL/min Moderately decreased: 30-59 Severely decreased: 15-29 Renal failure: <15 Glomerular Filtration Rate (GFR) is estimated based on the MDRD equation, which assumes a steady state for [...] drugs that are excreted by the kidneys. 76 Concerning GFR Guidelines for Americans: Normal function or mild renal disease, if clinically at risk: >/=60 mL/min Moderately decreased: 30-59 Severely decreased: 15-29 Renal failure: <15 77 Updated reference range on new analyzer 78 F41.1 E11.9 E78.2 79 Note: Persistent reduction for 3 months or more in an eGFR <60 mL/min/1.73 m2 defines CKD. Patients with eGFR values >/=60 mL/min/1.73 m2 may also have CKD if evidence of persistent proteinuria is present. The original MDRD equation for estimated GFR is not valid for patients less than 18 years of age. Additional information may be found at www.kdoqi.org. 80 Elevated levels of HbA1c suggest the need for more aggressive treatment of glycemia. The [place] [employer] recommends that a primary goal of therapy should be a HbA1c of <7% and that physicians should re-evaluate the treatment regimen in patients with HbA1c values consistently >8%. 81 Reference Guidelines*: Desirable: ........... < 200 mg/dL Borderline High: ..... 200-239 mg/dL High: ................ >=240 mg/dL * The National Cholesterol Education Program (NCEP) 82 Reference Guidelines*: Normal: ............. < 150 mg/dL Borderline High: .... 150-199 mg/dL High: ............... 200-499 mg/dL Very High: .......... > 500 mg/dL * Source: National Cholesterol Education Program (NCEP) 83 Reference Guidelines*: Low HDL: ..... < 40 mg/dL Normal: ..... 40-60 mg/dL Desirable: ... > 60 mg/dL *The National Cholesterol Education Program(NCEP) 84 Reference Guidelines*: Optimal:........... <100 mg/dL Near Optimal....... 100-129 mg/dL Borderline High.... 130-159 mg/dL High............... 160-189 mg/dL Very High.......... >=190 mg/dL * Source: National Cholesterol Education Program (NCEP) 85 Elevated levels of HbA1c suggest the need for more aggressive treatment of glycemia. The [place] [employer] recommends that a primary goal of therapy should be a HbA1c of <7% and that physicians should re-evaluate the treatment regimen in patients with HbA1c values consistently >8%. 86 Note: Persistent reduction for 3 months or more in an eGFR <60 mL/min/1.73 m2 defines CKD. Patients with eGFR values >/=60 mL/min/1.73 m2 may also have CKD if evidence of persistent proteinuria is present. The original MDRD equation for estimated GFR is not valid for patients less than 18 years of age. Additional information may be found at www.kdoqi.org. 87 Reference Guidelines*: Desirable: ........... < 200 mg/dL Borderline High: ..... 200-239 mg/dL High: ................ >=240 mg/dL * The National Cholesterol Education Program (NCEP) 88 Reference Guidelines*: Normal: ............. < 150 mg/dL Borderline High: .... 150-199 mg/dL High: ............... 200-499 mg/dL Very High: .......... > 500 mg/dL * Source: National Cholesterol Education Program (NCEP) 89 Reference Guidelines*: Low HDL: ..... < 40 mg/dL Normal: ..... 40-60 mg/dL Desirable: ... > 60 mg/dL *The National Cholesterol Education Program(NCEP) 90 Reference Guidelines*: Optimal:........... <100 mg/dL Near Optimal....... 100-129 mg/dL Borderline High.... 130-159 mg/dL High............... 160-189 mg/dL Very High.......... >=190 mg/dL * Source: National Cholesterol Education Program (NCEP) 91 Note: Persistent reduction for 3 months or more in an eGFR <60 mL/min/1.73 m2 defines CKD. Patients with eGFR values >/=60 mL/min/1.73 m2 may also have CKD if evidence of persistent proteinuria is present. The original MDRD equation for estimated GFR is not valid for patients less than 18 years of age. Additional information may be found at www.[email or web address]. 92 Reference Guidelines*: Desirable: ........... < 200 mg/dL Borderline High: ..... 200-239 mg/dL High: ................ >=240 mg/dL * The National Cholesterol Education Program (NCEP) 93 Reference Guidelines*: Normal: ............. < 150 mg/dL Borderline High: .... 150-199 mg/dL High: ............... 200-499 mg/dL Very High: .......... > 500 mg/dL * Source: National Cholesterol Education Program (NCEP) 94 Reference Guidelines*: Low HDL: ..... < 40 mg/dL Normal: ..... 40-60 mg/dL Desirable: ... > 60 mg/dL *The National Cholesterol Education Program(NCEP) 95 Reference Guidelines*: Optimal:........... <100 mg/dL Near Optimal....... 100-129 mg/dL Borderline High.... 130-159 mg/dL High............... 160-189 mg/dL Very High.......... >=190 mg/dL * Source: National Cholesterol Education Program (NCEP) 96 Elevated levels of HbA1c suggest the need for more aggressive treatment of glycemia. The [place] [employer] recommends that a primary goal of therapy should be a HbA1c of <7% and that physicians should re-evaluate the treatment regimen in patients with HbA1c values consistently >8%. 97 Elevated levels of HbA1c suggest the need for more aggressive treatment of glycemia. The [place] [employer] recommends that a primary goal of therapy should be a HbA1c of <7% and that physicians should re-evaluate the treatment regimen in patients with HbA1c values consistently >8%. 98 Note: Persistent reduction for 3 months or more in an eGFR <60 mL/min/1.73 m2 defines CKD. Patients with eGFR values >/=60 mL/min/1.73 m2 may also have CKD if evidence of persistent proteinuria is present. The original MDRD equation for estimated GFR is not valid for patients less than 18 years of age. Additional information may be found at www.kdoqi.org. 99 Reference Guidelines*: Desirable: ........... < 200 mg/dL Borderline High: ..... 200-239 mg/dL High: ................ >=240 mg/dL * The National Cholesterol Education Program (NCEP) 100 Reference Guidelines*: Low HDL: ..... < 40 mg/dL Normal: ..... 40-60 mg/dL Desirable: ... > 60 mg/dL *The National Cholesterol Education Program(NCEP) 101 Reference Guidelines*: Optimal:........... <100 mg/dL Near Optimal....... 100-129 mg/dL Borderline High.... 130-159 mg/dL High............... 160-189 mg/dL Very High.......... >=190 mg/dL * Source: National Cholesterol Education Program (NCEP) 102 Reference Guidelines*: Normal: ............. < 150 mg/dL Borderline High: .... 150-199 mg/dL High: ............... 200-499 mg/dL Very High: .......... > 500 mg/dL * Source: National Cholesterol Education Program (NCEP) 103 0 - 0.5 ng/mL: No evidence of myocardial injury 0.6 - 1.4 ng/mL: Mild elevation, suggesting possible myocardial injury > 1.4 ng/mL: Consistent with myocardial injury 104 0 - 0.5 ng/mL: No evidence of myocardial injury 0.6 - 1.4 ng/mL: Mild elevation, suggesting possible myocardial injury > 1.4 ng/mL: Consistent with myocardial injury 105 <=0.49 ug/mL - Low likelihood of DIC, DVT or Pulmonary Embolism >0.49 ug/ mL - Additional testing should be done to rule out DIC, DVT, or Pulmonary embolism as clinically indicated. ([facility] has established a 97.89% negative predictive value for thrombotic disease when a cutoff value of 0.5 ug/mL is used.) 106 Note: Persistent reduction for 3 months or more in an eGFR <60 mL/min/ 1.73 m2 defines CKD. Patients with eGFR values >/=60 mL/min/1.73 m2 may also have CKD if evidence of persistent proteinuria is present. The original MDRD equation for estimated GFR is not valid for patients less than 18 years of age. Additional information may be found at www.kdoqi.org. 107 0 - 0.5 ng/mL: No evidence of myocardial injury 0.6 - 1.4 ng/mL: Mild elevation, suggesting possible myocardial injury > 1.4 ng/mL: Consistent with myocardial injury 108 A1c value between 5.7% and 6.4% is considered at increased risk for diabetes. A1c value greater than 6.5 % is considered essentially diagnostic for Type II diabetes. Current guidelines recommend a treatment goal of <7% for diabetic patients. This method will measure glycosylated hemoglobin variants, HbS, HbG , HbH, HbWayne, HbC, HbE, etc. Other hemoglobin- opathies may give incorrect results with this test. 109 Note: Persistent reduction for 3 months or more in an eGFR <60 mL/min/ 1.73 m2 defines CKD. Patients with eGFR values >/=60 mL/min/1.73 m2 may also have CKD if evidence of persistent proteinuria is present. The original MDRD equation for estimated GFR is not valid for patients less than 18 years of age. Additional information may be found at www.kdoqi.org. 110 A1c value between 5.7% and 6.4% is considered at increased risk for diabetes. A1c value greater than 6.5 % is considered essentially diagnostic for Type II diabetes. Current guidelines recommend a treatment goal of <7% for diabetic patients. This method will measure glycosylated hemoglobin variants, HbS, HbG , HbH, HbWayne, HbC, HbE, etc. Other hemoglobin- opathies may give incorrect results with this test. 111 Note: Persistent reduction for 3 months or more in an eGFR <60 mL/min/ 1.73 m2 defines CKD. Patients with eGFR values >/=60 mL/min/1.73 m2 may also have CKD if evidence of persistent proteinuria is present. The original MDRD equation for estimated GFR is not valid for patients less than 18 years of age. Additional information may be found at www.kdoqi.org. 112 Vitamin D deficiency has been defined by the [place] [employer] and an Endocrine Society practice guideline as a level of serum 25-OH vitamin D less than 20 ng/mL (1,2). The Endocrine Society went on to further define vitamin D insufficiency as a level between 21 and 29 ng/mL (2). 1. IOM ([place] [employer]). 2010. Dietary reference intakes for calcium and D. [place]: The National AcademZIRX Press. 2. Nieves MF, Ugo BRADLEY, Caterina EDDY, et al. Evaluation, treatment, and prevention of vitamin D deficiency: an Endocrine Society clinical practice guideline. JCEM. 2010; 96(7):1911-30. Performed at: - [facility] [address] [id number] Hearing Aid Consultant: Carmel Adrian MD, Phone: [phone] 113 Negative <1:80 Borderline 1:80 Positive >1:80 Performed at: [facility] [address] [id number] Hearing Aid Consultant: Shubham Reeves MD, Phone: [phone] Performed at: [facility] [address] [id number] Hearing Aid Consultant: Carmel Adrian MD, Phone: [phone] 114 Negative <20 Weak positive 20 - 39 Moderate positive 40 - 59 Strong positive >59 115 QUERY: Is the Patient Fasting? Y 116 A1c value between 5.7% and 6.4% is considered at increased risk for diabetes. A1c value greater than 6.5 % is considered essentially diagnostic for Type II diabetes. Current guidelines recommend a treatment goal of <7% for diabetic patients. This method will measure glycosylated hemoglobin variants, HbS, HbG , HbH, HbWayne, HbC, HbE, etc. Other hemoglobin- opathies may give incorrect results with this test. 117 A1c value between 5.7% and 6.4% is considered at increased risk for diabetes. A1c value greater than 6.5 % is considered essentially diagnostic for Type II diabetes. Current guidelines recommend a treatment goal of <7% for diabetic patients. This method will measure glycosylated hemoglobin variants, HbS, HbG , HbH, HbWayne, HbC, HbE, etc. Other hemoglobin- opathies may give incorrect results with this test. 118 Note: Persistent reduction for 3 months or more in an eGFR <60 mL/min/ 1.73 m2 defines CKD. Patients with eGFR values >/=60 mL/min/1.73 m2 may also have CKD if evidence of persistent proteinuria is present. The original MDRD equation for estimated GFR is not valid for patients less than 18 years of age. Additional information may be found at www.kdoqi.org. 119 Vitamin D deficiency has been defined by the [place] [employer] and an Endocrine Society practice guideline as a level of serum 25-OH vitamin D less than 20 ng/mL (1,2). The Endocrine Society went on to further define vitamin D insufficiency as a level between 21 and 29 ng/mL (2). 1. IOM ([place] [employer]). 2010. Dietary reference intakes for calcium and D. [place]: The National Academies Press. 2. Nieves MF, Ugo BRADLEY, Caterina EDDY, et al. Evaluation, treatment, and prevention of vitamin D deficiency: an Endocrine Society clinical practice guideline. JCEM. 2010; 96(7):1911-30. Performed at: RN - [facility] [address] [id number] Hearing Aid Consultant: Carmel Adrian MD, Phone: [phone] 120 A1c value between 5.7% and 6.4% is considered at increased risk for diabetes. A1c value greater than 6.5 % is considered essentially diagnostic for Type II diabetes. Current guidelines recommend a treatment goal of <7% for diabetic patients. This method will measure glycosylated hemoglobin variants, HbS, HbG , HbH, HbWayne, HbC, HbE, etc. Other hemoglobin- opathies may give incorrect results with this test. 121 Note: Persistent reduction for 3 months or more in an eGFR <60 mL/min/ 1.73 m2 defines CKD. Patients with eGFR values >/=60 mL/min/1.73 m2 may also have CKD if evidence of persistent proteinuria is present. The original MDRD equation for estimated GFR is not valid for patients less than 18 years of age. Additional information may be found at www.kdoqi.org. 122 Effective February 27, 2011 Vitamin D, 25-Hydroxy reference intervals will be changing to 30-100. Recent studies consider the lower limit of 32.0 ng/mL to be a threshold for optimal health. Romo . J Nutr. 2004;135(2):317-22. Performed at: [address] [id number] Hearing Aid Consultant: Blade Navarrete MD, Phone: [phone] 123 Recent studies consider the lower limit of 32.0 ng/mL to be a threshold for optimal health. [facility]. J Nutr. 2004;135(2):317-22. Performed at: [address] [id number] Hearing Aid Consultant: Blade Navarrete MD, Phone: [phone] 124 FASTING SCHEDIULE 1-2 WEEKS PRIOR TO NEXT VISIT 125 Normal Range: Male: <4.98 Female: <4.45 126 FASTING 127 FASTING 128 FASTING Procedures Date Code Description Status 11/07/2018 23256 Brief Emotional/Behav Assessment W/ Scoring Doc Per Completed Standard Inst 04/25/2018 91265 Brief Emotional/Behav Assessment W/ Scoring Doc Per Completed Standard Inst 12/31/2017 81394 Tranforaminal Lumbar Or Sacral Epidural Inject Single Completed Level 11/05/2017 54831 Destruction Lumbar Or Sacral Each Add'l Facet Joint Completed 11/05/2017 32500 Destruction Lumbar Or Sacral Each Add'l Facet Joint Completed 03/27/2017 33530 Destruction Lumbar Or Sacral Each Add'l Facet Joint Completed 03/27/2017 18546 Destruction Lumbar Or Sacral Each Add'l Facet Joint Completed 02/23/2017 40415 Injection Diagnostic/Therapeutic Agent Lumbar/Sacral Completed Second Level 02/23/2017 15025 Injection Diagnostic/Therapeutic Agent Lumbar/Sacral Completed Single Level 01/04/2017 60890 Injection Diagnostic/Therapeutic Agent Lumbar/Sacral Completed Second Level 01/04/2017 87531 Injection Diagnostic/Therapeutic Agent Lumbar/Sacral Completed Single Level 11/23/2016 89857 Fluoroscopic Needle Placement Aspiration, Injection Completed Localization 11/23/2016 33443 Inject/Drain Joint/Bursa Major W/Out Ultrasound Completed Guidance 10/11/2016 14043 Tranforaminal Lumbar Or Sacral Epidural Inject Single Completed Level 09/06/2016 05120 Tranforaminal Lumbar Or Sacral Epidural Inject Single Completed Level 07/13/2016 40329 Sono For AAA Screening Completed 07/05/2016 84775 Electrocardiogram Complete Completed 05/11/2016 25543 Fluoroscopic Needle Placement Aspiration, Injection Completed Localization 05/11/2016 18256 Inject/Drain Joint/Bursa Major W/Out Ultrasound Completed Guidance 05/04/2016 67623 Tranforaminal Lumbar Or Sacral Epidural Inject Single Completed Level 02/11/2016 89825326 Colonoscopy Completed 12/02/2015 53272 Omt 1-2 Body Regions Completed 10/14/2015 73197 Omt 3-4 Body Regions Completed 07/30/2015 06557 Omt 1-2 Body Regions Completed 04/22/2014 95901 Inject/Drain Joint/Bursa Major W/Out Ultrasound Completed Guidance 10/17/2013 81149 Measure Blood Oxygen Level Single Determination Completed 10/17/2013 11156 Spirometry /PFT W/O Bronchodialator Completed Encounters Type Date Location Provider Dx Diagnosis Office Visit 09/09/2018 MD Lisa Hutchinson Rachel, M51.17 Intvrt disc 7:45a [place] [facility] disorders w radiculopathy, lumbosacral region M51.16 Intervertebral disc disorders w radiculopathy, 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, 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, lumbar region Z68.31 Body mass index (BMI) 31.0-31.9, adult Office Visit 08/05/2018 8:00a [facility] Lazara Baez MD Z00.00 Encntr for general [...] unspecified Office Visit 07/29/2018 7:45a Lisa Hutchinson Rachel, M51.17 Intvrt disc MD Roxana MIGUEL disorders w radiculopathy, lumbosacral region M51.16 Intervertebral disc disorders w radiculopathy, 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, 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, lumbar region Z68.31 Body mass index (BMI) 31.0-31.9, adult Office Visit 07/10/2018 9:15a [facility] Lazara Baez MD E66.9 Obesity, unspecified K57.32 Dvtrcli of lg int w/o perforation or abscess w/o bleeding 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, lumbar region Z68.31 Body mass index (BMI) 31.0-31.9, adult Office Visit 04/25/2018 4:15p [facility] Lazara Baez MD G47.33 Obstructive sleep apnea (adult) (pediatric) E78.2 Mixed hyperlipidemia 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, lumbar region K22.2 Esophageal obstruction K21.9 Gastro-esophageal reflux disease without esophagitis E11.9 Type 2 diabetes mellitus without complications F41.1 Generalized anxiety disorder M15.9 Polyosteoarthritis, unspecified N40.1 Benign prostatic hyperplasia with lower urinary tract symp C61 Malignant neoplasm of prostate Z13.31 Encounter for screening for depression K58.0 Irritable bowel syndrome with diarrhea Z68.32 Body mass index (BMI) 32.0-32.9, adult Office Visit 03/29/2018 11:45a Jonnathan Hutchinson Renee, M51.17 Intvrt disc disorders MD Roxana Jimenes w radiculopathy, lumbosacral region M51.16 Intervertebral disc disorders w radiculopathy, 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, 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, lumbar region Z68.31 Body mass index (BMI) 31.0-31.9, adult Office Visit 01/25/2018 10:00a Lisa Hutchinson Rachel, M51.17 Intvrt disc MD Roxana MIGUEL disorders w radiculopathy, lumbosacral region M51.16 Intervertebral disc disorders w radiculopathy, 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, 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, lumbar region Z68.31 Body mass index (BMI) 31.0-31.9, adult Office Visit 01/21/2018 4:15p [facility] Lazara Baez MD G47.33 Obstructive sleep apnea (adult) (pediatric) E78.2 Mixed hyperlipidemia 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, lumbar region K22.2 Esophageal obstruction K21.9 Gastro-esophageal reflux disease without esophagitis E11.9 Type 2 diabetes mellitus without complications F41.1 Generalized anxiety disorder M15.9 Polyosteoarthritis, unspecified N40.1 Benign prostatic hyperplasia with lower urinary tract symp Z68.32 Body mass index (BMI) 32.0-32.9, adult Office Visit 01/07/2018 10:45a [facility] Ladonna Mata, [employer] M54.5 Low back pain Z68.32 Body mass index (BMI) 32.0-32.9, adult Office Visit 12/17/2017 7:30a Lisa Hutchinson, M47.816 Spondylosis w/o MD Roxana Carpio PA-C myelopathy or radiculopathy, 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, lumbosacr region M51.17 Intvrt disc disorders w radiculopathy, lumbosacral region M19.011 Primary osteoarthritis, RIGHT shoulder M75.41 Impingement syndrome of 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, lumbar region Z68.31 Body mass index (BMI) 31.0-31.9, adult Office Visit 10/17/2017 7:30a Lisa Hutchinson, M47.816 Spondylosis w/o MD Roxana Carpio PA-C myelopathy or radiculopathy, lumbar region M51.17 Intvrt disc disorders w radiculopathy, lumbosacral region M19.011 Primary osteoarthritis, 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, lumbar region M75.41 Impingement syndrome of RIGHT shoulder Z68.31 Body mass index (BMI) 31.0-31.9, adult Office Visit 10/11/2017 8:45a [facility] Lazara Baez MD G47.33 Obstructive sleep apnea (adult) (pediatric) E78.2 Mixed hyperlipidemia K21.9 Gastro-esophageal reflux disease without esophagitis E11.9 Type 2 diabetes mellitus without complications K22.2 Esophageal obstruction M15.9 Polyosteoarthritis, unspecified N40.1 Benign prostatic hyperplasia with lower urinary tract symp N13.8 Other obstructive and reflux uropathy Z71.9 Counseling, unspecified F41.1 Generalized anxiety disorder Z68.31 Body mass index (BMI) 31.0-31.9, adult Office Visit 08/24/2017 1:45p [facility] Lazara Baez MD K57.32 Dvtrcli of lg int w/o perforation or abscess w/o bleeding E11.9 Type 2 diabetes mellitus without complications Z68.30 Body mass index (BMI) 30.0-30.9, adult Office Visit 08/03/2017 Elizabeth Hutchinson Jill M47.816 Spondylosis w/o 7:30a MD Roxana Bazan, YULISA myelopathy or radiculopathy, lumbar region M51.17 Intvrt disc disorders w radiculopathy, lumbosacral region M19.011 Primary osteoarthritis, 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, lumbar region M75.41 Impingement syndrome of RIGHT shoulder Office Visit 07/09/2017 9:30a [facility] Lazara Baez MD Z00.00 Encntr for general adult medical exam w/o abnormal findings Z00.00 Encntr for general adult medical exam w/o abnormal findings Z13.89 Encounter for screening for other disorder G47.33 Obstructive sleep apnea (adult) (pediatric) E78.2 Mixed hyperlipidemia 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, lumbar region K22.2 Esophageal obstruction K21.9 Gastro-esophageal reflux disease without esophagitis E11.9 Type 2 diabetes mellitus without complications F41.1 Generalized anxiety disorder N40.1 Benign prostatic hyperplasia with lower urinary tract symp Z68.33 Body mass index (BMI) 33.0-33.9, adult Office Visit 04/27/2017 Elizabeth Hutchinson Jill M47.816 Spondylosis w/o 7:30a MD Roxana Bazan, [employer] myelopathy or radiculopathy, lumbar region M51.17 Intvrt disc disorders w radiculopathy, lumbosacral region M19.011 Primary osteoarthritis, RIGHT shoulder Office Visit 04/12/2017 2:00p [facility] Lazara Baez MD E11.9 Type 2 diabetes mellitus without complications G47.33 Obstructive sleep apnea (adult) (pediatric) E78.2 Mixed hyperlipidemia 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, lumbar region K21.9 Gastro-esophageal reflux disease without esophagitis K22.2 Esophageal obstruction F41.1 Generalized anxiety disorder M15.9 Polyosteoarthritis, unspecified Z11.59 Encounter for screening for other viral diseases Office Visit 03/14/2017 Elizabeth Hutchinson Jill M47.816 Spondylosis w/o 7:30a MD Roxana Bazan, YULISA myelopathy or radiculopathy, lumbar region M51.16 Intervertebral disc disorders w radiculopathy, lumbar region G89.29 Other chronic pain Office Visit 02/02/2017 Elizabeth Hutchinson Jill M47.817 Spondyls w/o 1:30p MD Roxana Bazan, YULISA myelopathy or radiculopathy, lumbosacr region 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, lumbar region G89.29 Other chronic pain Office Visit 01/22/2017 1:30p [facility] Gustavo Madsen DO K57.32 Dvtrcli of lg int w/o perforation or abscess w/o bleeding E11.9 Type 2 diabetes mellitus without complications E86.0 Dehydration Office Visit 01/03/2017 11:15a [facility] Gustavo Madsen DO E11.9 Type 2 diabetes mellitus without complications E78.2 Mixed hyperlipidemia M15.0 Primary generalized (osteo)arthritis G47.33 Obstructive sleep apnea (adult) (pediatric) K21.9 Gastro-esophageal reflux disease without esophagitis 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 osteoarthritis, RIGHT shoulder M75.41 Impingement syndrome of RIGHT shoulder M75.111 Incomplete rotatr-cuff tear/ruptr of r shoulder, not trauma M75.21 Bicipital tendinitis, RIGHT shoulder Office Visit 11/02/2016 1:30p Jonnathan Hutchinson Renee, M51.16 Intervertebral disc MD Roxana Jimenes disorders w radiculopathy, lumbar region M51.17 Intvrt disc disorders w radiculopathy, lumbosacral region Office Visit 10/16/2016 8:30a Jonnathan Hutchinson Renee, M51.16 Intervertebral disc MD Roxana Jimenes disorders w radiculopathy, lumbar region M51.17 Intvrt disc disorders w radiculopathy, lumbosacral region Office Visit 10/05/2016 8:30a [facility] Gustavo Madsen, E11.9 Type 2 diabetes mellitus without complications E78.2 Mixed hyperlipidemia M15.0 Primary generalized (osteo)arthritis G47.33 Obstructive sleep apnea (adult) (pediatric) K21.9 Gastro-esophageal reflux disease without esophagitis 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, lumbar region Z86.010 Personal history of colonic polyps F41.1 Generalized anxiety disorder G47.00 Insomnia, unspecified Office Visit 09/11/2016 7:30a MD Jonnathan Hutchinson Renee, M79.631 Pain in RIGHT Roxana Jimenes 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, cervical region M75.111 Incomplete rotatr-cuff tear/ruptr of r shoulder, not trauma M75.21 Bicipital tendinitis, RIGHT shoulder M51.17 Intvrt disc disorders w radiculopathy, lumbosacral region M51.16 Intervertebral disc disorders w radiculopathy, lumbar region M19.011 Primary osteoarthritis, RIGHT shoulder Office Visit 07/05/2016 9:15a [facility] Gustavo Madsen DO E11.9 Type 2 diabetes mellitus without complications E78.2 Mixed hyperlipidemia G47.33 Obstructive sleep apnea (adult) (pediatric) K21.9 Gastro-esophageal reflux disease without esophagitis M15.0 Primary generalized (osteo)arthritis 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, lumbar region Z86.010 Personal history of colonic polyps F41.1 Generalized anxiety disorder Z00.00 Encntr for general adult medical exam w/o abnormal findings Z68.32 Body mass index (BMI) 32.0-32.9, adult Z23 Encounter for immunization Z13.6 Encounter for screening for cardiovascular disorders G47.00 Insomnia, unspecified J30.9 Allergic rhinitis, unspecified N40.1 Benign prostatic hyperplasia with lower urinary tract symp Office Visit 05/22/2016 1:15p MD Lisa Hutchinson Rachel, M99.61 Osseous and [place] PA-C sublux stenosis of intvrt foramin of cerv region M50.223 Other cervical disc displacement at C6-C7 level M50.122 Cervical disc disorder at C5-C6 level with radiculopathy M47.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, cervical region M75.111 Incomplete rotatr-cuff tear/ruptr of r shoulder, not trauma M75.21 Bicipital tendinitis, RIGHT shoulder M51.17 Intvrt disc disorders w radiculopathy, lumbosacral region M51.16 Intervertebral disc disorders w radiculopathy, lumbar region M19.011 Primary osteoarthritis, RIGHT shoulder Office Visit 05/03/2016 11:00a MD Jonnathan Hutchinson Renee, M75.21 Bicipital Roxana Jimenes tendinitis, RIGHT shoulder M75.111 Incomplete rotatr-cuff tear/ruptr of r shoulder, not trauma M19.011 Primary osteoarthritis, RIGHT shoulder M47.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, cervical region M50.122 Cervical disc disorder at C5-C6 level with radiculopathy M50.223 Other cervical disc displacement at C6-C7 level M99.61 Osseous and sublux stenosis of intvrt foramin of cerv region Office Visit 04/26/2016 8:30a Jonnathan Hutchinson Renee M47.812 Spondylosis w/o MD Roxana Jimenes myelopathy or radiculopathy, cervical region M50.122 Cervical disc disorder at C5-C6 level with radiculopathy M75.51 Bursitis of RIGHT shoulder M75.41 Impingement syndrome of RIGHT shoulder Office Visit 04/25/2016 10:55a Jonnathan Hutchinson Renee, M47.816 Spondylosis w/o MD Roxana Jimenes myelopathy or radiculopathy, 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, lumbosacr region M51.16 Intervertebral disc disorders w radiculopathy, lumbar region M51.17 Intvrt disc disorders w radiculopathy, lumbosacral region M51.27 Other intervertebral disc displacement, lumbosacral region M99.63 Osseous and sublux stenos of intvrt foramin of lumbar region Office Visit 04/04/2016 8:30a [facility] Gustavo Madsen DO E11.9 Type 2 diabetes mellitus without complications E78.2 Mixed hyperlipidemia G47.33 Obstructive sleep apnea (adult) (pediatric) K21.9 Gastro-esophageal reflux disease without esophagitis M15.0 Primary generalized (osteo)arthritis 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, lumbar region Z86.010 Personal history of colonic polyps F41.1 Generalized anxiety disorder Office Visit 12/30/2015 11:30a [facility] Gustavo Madsen DO F41.1 Generalized anxiety disorder Office Visit 12/02/2015 8:15a [facility] Gustavo Madsen DO F41.1 Generalized anxiety disorder E11.9 Type 2 diabetes mellitus without complications E78.2 Mixed hyperlipidemia G47.33 Obstructive sleep apnea (adult) (pediatric) K21.9 Gastro-esophageal reflux disease without esophagitis M15.0 Primary generalized (osteo)arthritis K22.2 Esophageal obstruction 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, lumbar region Z86.010 Personal history of colonic polyps M99.01 Segmental and somatic dysfunction of cervical region Office Visit 10/07/2015 11:30a [facility] Gustavo Madsen DO F41.1 Generalized anxiety disorder Office Visit 07/30/2015 8:30a [facility] Gustavo Madsen DO E11.9 Type 2 diabetes mellitus without complications E78.2 Mixed hyperlipidemia G47.33 Obstructive sleep apnea (adult) (pediatric) K21.9 Gastro-esophageal reflux disease without esophagitis M15.0 Primary generalized (osteo)arthritis K22.2 Esophageal obstruction 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, lumbar region F41.1 Generalized anxiety disorder M99.01 Segmental and somatic dysfunction of cervical region Office Visit 07/08/2015 11:40a [facility] Gustavo Madsen DO F41.1 Generalized anxiety disorder Office Visit 03/25/2015 1:30p [facility] Gustavo Madsen DO E11.9 Type 2 diabetes mellitus without complications E78.2 Mixed hyperlipidemia G47.33 Obstructive sleep apnea (adult) (pediatric) K21.9 Gastro-esophageal reflux disease without esophagitis F41.1 Generalized anxiety disorder M15.0 Primary generalized (osteo)arthritis K22.2 Esophageal obstruction 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, lumbar region Office Visit 01/05/2015 1:45p [facility] Gustavo Madsen DO E11.9 Type 2 diabetes mellitus without complications E78.2 Mixed hyperlipidemia G47.33 Obstructive sleep apnea (adult) (pediatric) K21.9 Gastro-esophageal reflux disease without esophagitis F41.1 Generalized anxiety disorder M15.0 Primary generalized (osteo)arthritis K22.2 Esophageal obstruction 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, lumbar region V03.82 Streptococcus Pneumoniae Vaccination Spec Other Z23 Encounter for immunization Office Visit 10/07/2014 9:15a [facility] Gustavo Madsen, DO 250.00 Diabetes Mellitus W/O Compl Type II Or Unspec Controlled 272.2 Hyperlipidemia Mixed 327.23 Apnea, Obstructive Sleep Apnea Adult & Pediatric 530.81 Esophageal Reflux 300.02 Anxiety Disorder Generalized 715.09 Osteoarthrosis Generalized Multiple Sites 530.3 Esophageal Stricture & Stenosis 722.73 Intervertebral Disc Disorder Lumbar W/ Myelopathy Office Visit 07/06/2014 10:15a [facility] Gustavo Madsen DO 250.00 Diabetes Mellitus W/O Compl Type II Or Unspec Controlled 272.2 Hyperlipidemia Mixed 327.23 Apnea, Obstructive Sleep Apnea Adult & Pediatric 530.81 Esophageal Reflux 300.02 Anxiety Disorder Generalized 715.09 Osteoarthrosis Generalized Multiple Sites 530.3 Esophageal Stricture & Stenosis 722.73 Intervertebral Disc Disorder Lumbar W/ Myelopathy 719.41 Pain Joint Shoulder Region Office Visit 06/02/2014 9:30a [facility] Gustavo Madsen DO 250.00 Diabetes Mellitus W/O Compl Type II Or Unspec Controlled 995.1 Edema Angioneurotic Not Elsewhere Class Office Visit 04/28/2014 9:30a [facility] Gustavo Madsen DO 995.1 Edema Angioneurotic Not Elsewhere Class Office Visit 04/22/2014 9:45a [facility] Gustavo Madsen DO 726.11 Tendinitis Calcifying Shoulder Plan of Treatment Future Appointment(s):11/22/2018 3:30 pm - Lazara Baez MD at [facility]01/31/2019 9:05 am - Schedule, Laboratory at [facility]02/07/2019 8:45 am - Lazara Baez MD at [facility]01/10/2019 7:45 am - [facility] [id number] - Lazara Baez MDE66.9 Obesity, unspecifiedComments:Counseled about strategies for weight loss and the impact of weight on chronic medical problems.Work on healthy lifestyle, with regular exercise (20 min daily will help) and eat a healthy diet. Formal diet plans work best. discussed limiting ice cream and fast food.E78.2 Mixed hyperlipidemiaComments:His cholesterol is goal, controlled with atorvastatin. Continue current medication.Follow up:2-4 weeks follow up for switching from Lexapro to duloxetine 3-months routine follow up with non-fasting labs prior.E11.9 Type 2 diabetes mellitus without complicationsNew Labs:Basic (BMP), Scheduled: Hemoglobin A1c, Scheduled: 01/31/19Comments:His diabetes is stable, but not quite at goal. He is on the maximum dose of metformin. He will take a whole pill of glimepiride. HbA1c is 8.0 which is stable.M51.17 Intervertebral disc disorders with radiculopathy, lumbosacraNew Medication:Duloxetine HCL 30 mg - take one capsule by mouth every day x 1 week then 2 po dailyComments:For his back pain, he is taking gabapentin. Continue current medication.N40.1 Benign prostatic hyperplasia with lower urinary tract symptomsComments:The patient will follow with Dr. Goldberg. for the prostate.F41.1 Generalized anxiety disorderNew Medication:Duloxetine HCL 30 mg - take one capsule by mouth every day x 1 week then 2 po dailyComments:The patient was switched from Lexapro to duloxetine, which also works for his pain. Patient was prescribed with duloxetine He is trying to wean of alprazolam. He can cut back to of pill when needed.C61 Malignant neoplasm of prostateComments:Patient to continue to follow up with Dr. Lawton for radiation treatment.M15.9 Polyosteoarthritis , unspecifiedComments:Continue to see Dr. De Santiago as scheduled.G47.33 Obstructive sleep apnea (adult) (pediatric)Comments:He is using CPAP for his sleep apnea. Dr. Dorado is managing this.K21.9 Gastro-esophageal reflux disease without esophagitisComments:He is using esomeprazole. He was advised to try skipping one dose a week.G47.00 Insomnia, unspecifiedComments:He is using trazodone. Continue current medication.Z68.31 Body mass index (BMI) 31.0-31.9, adultComments:The BMI is the ratio between height and weight. goal for a person over age 65 is between 23 and 30. You are overweight. Work on healthy lifestyle, with regular exercise (20 min daily will help) and eat a healthy diet. Formal diet plans work best.
--- NOTE | 2018-11-20 18:48 | HP ---
ADMISSION HISTORY AND PHYSICAL: DATE OF ADMISSION: 11/20/18 ATTENDING ORTHOPEDIC PROVIDER: Dr. Randy Patel.* (DICTATED BY ALF [facility]) CHIEF COMPLAINT: Right hip fracture. HISTORY OF PRESENT ILLNESS: Mr. Hale is an 83-year-old male who presents to the emergency room today, 11/20/18, with the chief complaint of right hip fracture. He sustained this fracture early in November while he was in [place]. He fell on the second day of his 10-day trip and continued to ambulate, though often with the assistance of a wheelchair throughout his trip. He had felt that he pulled a muscle and was not having any severe pain. He has been walking up until the time of admission to the emergency room today. He did have x-rays done 3 days ago at [facility] showing hip fracture. Today, he came to our orthopedic office, and as soon as Dr. Patel saw his x-rays, he sent him into the emergency room for admission. Fall occurred when the patient tripped over uneven ground. He did not hit his head or injure any other extremities. Reports that he did not have any loss of consciousness. When he fell, he denies having any dizziness, shortness of breath, chest pain, or change in vision. Today, he has mild pain of the right hip, worse with ambulation, worse with movement, though largely nonpainful. He has no numbness or tingling into the right lower extremity. He has no history of heart attack, stroke, or blood clot. He does have a history of AAA measuring roughly 2.5 cm. He has never had general anesthesia. PAST MEDICAL HISTORY: AAA, stable since at 2014; glaucoma; nonoperative left ankle fracture; nonoperative right wrist fracture; gastric ulcer in 1965; BPH; heart murmur. PAST SURGICAL HISTORY: None. MEDICATIONS: Latanoprost 1 drop both eyes daily. ALLERGIES: PENICILLIN, anaphylaxis. FAMILY HISTORY: No known family history of adverse reactions from anesthesia. SOCIAL HISTORY: The patient smokes 3 to 5 cigars per day. He drinks 2 glasses of red wine per night. No illicit drug use. At baseline, he walks without an assistive device and is quite active. He is able to walk to the end of a over [address] and [address] without symptoms and without fatigue. REVIEW OF SYSTEMS: General: Negative for fever, chills, or recent illness. HEENT: Negative for acute change in vision, headache, or head trauma. Cardio: No irregular beats, chest pain. No history of AR. Respiratory: No shortness of breath or cough. No history of asthma, COPD. Abdomen: No abdominal pain, nausea, vomiting, diarrhea. : No dysuria. Positive for BPH. Musculoskeletal: Positive for right hip pain. Neuro: Sensation intact through all extremities without numbness or paresthesias. Hematology: No history of blood clot. Skin: No reported rash or lesions. PHYSICAL EXAMINATION GENERAL: Well-appearing, in no acute distress, alert and oriented to person, place, and time. The patient's is in the room with him. VITAL SIGNS: Temperature 97.7, pulse rate 67, respiratory rate 16, oxygen saturation 93% on room air, blood pressure 103/46. HEENT: Normocephalic, atraumatic. Extraocular movements intact. Moist mucous membranes. RESPIRATORY: Clear to auscultation bilaterally without wheezes, rales, or rhonchi. CARDIO: S1, S2. Positive heart murmur. ABDOMEN: Bowel sounds normoactive. Nontender to palpation. No guarding. No rigidity. MUSCULOSKELETAL: Bilateral upper extremities: Skin envelop intact. No obvious deformity. Nontender to palpation. Active flexion and extension of the digits, wrists, elbows without associated pain. Shoulder is nonpainful. Active forward flexion and abduction without pain. Bilateral lower extremities : Skin envelop is intact. There is no obvious bony deformity or rotation about the limb. He is nontender to palpation. Left lower extremity: Active nonpainful flexion and extension of the digits, ankle, knee, and hip. Negative log roll to hip. Right lower extremity: Active flexion and extension of the digits, ankle, knee, and hip with only very mild pain with hip flexion. NEURO: Sensation intact to light touch throughout bilateral upper and lower extremities. VASCULAR: DP pulse 2+ bilaterally. PSYCH: Appropriate affect. SKIN: No rash or lesions. DIAGNOSTIC STUDIES/LAB DATA: X-ray of the right hip and pelvis demonstrates an impacted right femoral neck fracture. Laboratory values: White blood cell count 6.8, hemoglobin 12.6. INR 1.06. Sodium 136, potassium 4.4, creatinine 0.73. ASSESSMENT: Right impacted femoral neck fracture. PLAN: The patient will be nonweightbearing on right lower extremity. He may sit in a chair. He will be on heparin 5000 units subcu q.8 until midnight tonight when it will be held for the operating room tomorrow. He should be n.p.o. at midnight for the operating room tomorrow. The patient is aware and agreeable to cannulated screw placement by Dr. Patel tomorrow for fixation of this femoral neck fracture. ALF ELLIS [id number]/[facility] #: [id number] MTDNaveed
--- NOTE | 2018-11-20 20:19 | HP ---
ADMISSION NOTE: DATE OF ADMISSION: 11/20/18 This admission note I am coordinating with ALF Handley as well. CHIEF COMPLAINT: Right hip region pain. HISTORY OF PRESENT ILLNESS: This 83-year-old man, who was vacationing in [place] and accidentally fell after his foot hit an irregularity on the surface he was walking on and he fell down on 11/09/18. He thinks that he fell hard onto his right knee and then fell onto his right hip and side. Then subsequently there was a lot of pain in the right hip region for the first couple of days. He thought he had a flare-up of sciatic problem, has had an old injury and separation of his sacroiliac joints. He saw Dr. Verma on and he had some outpatient x-rays of hip, and he has a right femoral neck fracture. We recommended hospitalization and pin fixation of the fracture and that is why he has been brought into the hospital. 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 No hypertension. He had pneumonia about 3 years ago. No cardiac problems. No stroke. No chest pain. He has not had any cancers. He does have prostatic hypertrophy, followed by Dr. Vergara. He has glaucoma and he takes eyedrops for that. MEDICATIONS: He does think he has had Keflex in the past, and my plan is to use Ancef for the perioperative antibiotic. ALLERGIES: He is allergic to PENICILLIN. He has had keflex in the past. PHYSICAL EXAMINATION GENERAL: Today, he is not acutely distressed. EXTREMITIES: He does have a slight limp on the right. His right hip has flexion approaching 90 degrees, abduction approaching 30 degrees. There is slight hip tenderness anteriorly and laterally. He is able to do a leg raise. His right knee is soft and nontender. His right knee has full active extension. The right dorsalis pedis pulse is 2+ and there is no swelling of his right ankle and foot. He has active movements of the ankle in 4 planes and he is able to flex his knee as well. DIAGNOSTIC STUDIES: His radiographs show an impacted valgus right femoral neck fracture with very very slight displacement. Impression: Right femoral neck fracture PLAN/RECOMMENDATIONS: Internal fixation of the fracture with cannulated screws. The plan is for internal fixation of this fracture with cannulated screws. I have discussed this carefully with him. Risks and complications like infection were reviewed and the fracture healing will be 2 to 4 months. After the surgery , we want him to use a walker, but we were planning that he will be weightbearing as tolerated. The injury was outlined for him in the hip fracture booklet and I circled the proposed surgery with pinning, and he is advised that he will have 3 to 4 pins and I will follow him carefully in the office. His questions were answered as were those of his . Proceed with surgical care on 11/21/18. [id number]/[facility] #: [id number] MTDNaveed
[2018-11-21] MEDS: Acetaminophen TAB* 325 MG PO SCH ×3 (04:28→22:01)
[2018-11-21 06:02] LABS: ABS Eosinophils 0.2 10^3/ul (0-0.6); ABS Lymphocytes 1.6 10^3/ul (1.0-4.8); ABS Monocytes 0.9 10^3/ul (0-0.8); ABS Neutrophils 3.8 10^3/ul (1.5-7.7); Eosinophil % 3.4 %; Hematocrit 34 % (42-52); Hemoglobin 11.8 g/dL (14.0-18.0); Lymphocyte % 24.4 %; Mean Corpuscular HGB Conc 35 g/dL (31-36); Mean Corpuscular Hemoglobin 34 pg (27-31); Mean Corpuscular Volume 98 fL (80-94); Mean Platelet Volume 8.4 fL (7.4-10.4); Platelet Count 226 10^3/uL (150-450); Red Blood Count 3.48 10^6 /uL (4.18-5.48); Red Cell Distribution Width 13 % (10-15); White Blood Count 6.6 10^3/uL (3.5-10.8)
[2018-11-21 06:09] LABS: INR 1.1 (0.82-1.09)
[2018-11-21 06:29] LABS: BUN/Creatinine Ratio 20.6 (8-20); Calcium 8.9 mg/dL (8.6-10.3); EGFR African American 135.1 (>60); EGFR Non-African American 111.6 (>60); Potassium 3.7 mmol/L (3.5-5.0)
[2018-11-21] MEDS ORDERED: fentaNYL* 50 MCG/ML 2 ML VIAL (100 MCG VIAL) ONE (08:16)
[2018-11-21] MEDS ORDERED: Midazolam* 1 MG/ML 2 ML VIAL (2 MG) ONE ×2 (08:16→09:32)
[2018-11-21] MEDS ORDERED: ceFAZolin 2 GM in NS PREMIX(*) 2 GM/100 ML BAG IVPB ONE (08:22)
[2018-11-21] MEDS ORDERED: Bupivacaine 0.25% SDV PF* 10 ML VIAL INJ ONE ×2 (09:11→10:49)
[2018-11-21] MEDS ORDERED: Famotidine IV* 10 MG/ML 2 ML (20 mg) ONE (09:14)
[2018-11-21] MEDS ORDERED: Bupivacaine 0.5% SDV PF* 30ML VIAL ONE (09:33)
[2018-11-21] MEDS ORDERED: diPHENhydraMINE IV* 50 MG/ML 1 ml VIAL (BENADRYL) IV PRN (10:13)
[2018-11-21] MEDS ORDERED: fentaNYL* 50 MCG/ML 2 ML VIAL (100 MCG VIAL) IV PRN (10:13)
[2018-11-21] MEDS ORDERED: DiMENhydriNATE IV* 50 MG/ML VIAL IV PUSH PRN (10:13)
[2018-11-21] MEDS ORDERED: Naloxone* 0.4 MG/ML 1 ML VIAL IV PRN (10:13)
[2018-11-21] MEDS ORDERED: Levalbuterol 0.63MG/3ML NEB* UNIT OF USE INH PRN (10:13)
[2018-11-21] MEDS ORDERED: Dexamethasone IV* 4 MG/ML 1 ML (4 MG) ONE (10:19)
[2018-11-21] MEDS ORDERED: diPHENhydraMINE IV* 50 MG/ML 1 ml VIAL (BENADRYL) ONE (10:19)
[2018-11-21] MEDS ORDERED: Lidocaine 2% PF * 5 ML VIAL ONE (10:19)
[2018-11-21] MEDS ORDERED: Propofol* 10 MG/ML 20 ML BTL ONE (10:19)
--- NOTE | 2018-11-21 14:09 | OP ---
DATE OF OPERATION: 11/21/18 - ROOM #346 DATE OF : [birth year] - AGE: 83 SURGICAL CARE: Right hip. SURGEON: Randy Patel MD. FAMILY AND CONSUMER SCIENCES TEACHER: There was no career services assistant. ANESTHESIOLOGIST: Dr. Obrien. PRE-OP DIAGNOSIS: Impacted valgus right femoral neck fracture. POST-OP DIAGNOSIS: Impacted valgus right femoral neck fracture. OPERATIVE PROCEDURE: Internal fixation of the right femoral neck fracture with 3 Synthes cannulated screws. COMPLICATIONS: There were no complications. DRAINS: There were no drains. BLOOD LOSS: 20 to 30 mL. REPLACEMENT: Crystalloid fluids. CONDITION: Stable to the recovery room. Ancef was given as a surgical prophylaxis without evidence of allergic reaction. OPERATIVE INDICATION: Impacted valgus, right femoral neck fracture. DESCRIPTION OF PROCEDURE: The patient was brought to the operating room and placed on the operating room table in a supine position on the fracture table. The Ancef was then administered and no allergic consequences appeared and the spinal anesthetic was administered. The patient was placed in a supine position and then further positioned on the fracture table with a padded post in the groin. The right lower extremity was placed in a padded footpiece, elevated slightly, abducted and gently internally rotated. There was no traction necessary. The AP and lateral fluoroscopic view of the hip showed satisfactory alignment of the femoral neck fracture. The patient was prepped and draped. A time-out was completed, confirming Garrett Hale, the right hip, and the plan for internal fixation. We all agreed and we proceeded. Then, under fluoroscopic control a lateral skin incision was made over the lateral thigh and over the lateral femoral cortex. The skin was divided for approximately 1-1/4 inches, subcu divided down to the fascia. The fascia was opened up for about an inch and then a Moni clamp was utilized to go down to the lateral femoral cortex and divide the vastus lateralis bluntly to allow the pins. The first pin was inserted going up the calcar into the femoral head and when its position had been accepted, then utilizing the Synthes guide, an inverted triangle of 2 more pins was applied going up the femoral head and neck. Each pin was placed, checked on AP and lateral fluoroscopy. The lateral cortex was drilled and then each pin was inserted in turn and their lengths were all accepted. Final x-ray showed satisfactory position of the fracture and the pins just away from the subchondral bone on the femoral head. At the end, the rotation of the leg was checked and each fluoroscopic views once again showed that the pins were in satisfactory position within the head and not embarrassing the right hip joint. The wound was irrigated with saline. The wound was instilled with Marcaine 0.25% without epinephrine approximately 25 mL and some of this came out the skin incision. The skin was closed with interrupted 3-0 nylon in vertical mattress in simple fashion and a dressing of Betadine-soaked Release, sterile gauze, paper tape, ABD pad and a 6-inch Alen bandage loosely applied on the thigh. The patient was returned to the recovery room in stable and satisfactory condition having tolerated the procedure very well. The prognosis is satisfactory. [id number]/CPS #: [id number] MTDD
--- NOTE | 2018-11-21 16:26 | PN ---
Progress Note - Progress Note Date of Service: 11/21/18 Note: Notified by nursing that patient is unsteady with ambulation and is retaining urine. A hospitalist consult was requested for urinary retention. Patient can continue with PT/OT. We will monitor.
--- NOTE | 2018-11-21 19:06 | PN ---
Subjective Date of Service: 11/21/18 Interval History: Patient assessed post op on SSSU. Reports no pain in right hip. Denies cp, palpitations, sob, nausea, vomiting. Reports he has the urinal in bed with him as he is trying to void. Reports last void was at 1030 am this morning. Reports suprapubic pressure and sensation to void. Objective Active Medications: Acetaminophen (Tylenol Tab*) 975 mg PO Q8HR FIORDALIZA Last Admin: 11/21/18 15:18 Dose: 975 mg Aspirin (Ecotrin Ec Tab*) 325 mg PO BID FIORDALIZA Diphenhydramine HCl (Benadryl Iv*) 25 mg IV Q6H PRN PRN Reason: itching Diphenhydramine HCl (Benadryl Po*) 25 mg PO Q6H PRN PRN Reason: itching Docusate Sodium (Colace Cap*) 100 mg PO BID PRN PRN Reason: CONSTIPATION Magnesium Hydroxide (Milk Of Magnesia Liq*) 30 ml PO BID PRN PRN Reason: CONSTIPATION Morphine Sulfate (Morphine 4 Mg/Ml Vial (1 Ml)) 2 mg IV Q2H PRN PRN Reason: breaktrhu pain Ondansetron HCl (Zofran Inj*) 4 mg IV Q6H PRN PRN Reason: nausea Ondansetron HCl (Zofran Odt Tab*) 4 mg PO Q6H PRN PRN Reason: NAUSEA Tramadol HCl (Ultram*) 50 mg PO Q6H PRN PRN Reason: PAIN - MODERATE Vital Signs - 8 hr 11/21/18 11/21/18 11/21/18 11:02 11:05 11:10 Temperature 97.2 F Pulse Rate 61 65 59 Respiratory 15 13 12 Rate Blood Pressure 141/75 137/67 139/73 (mmHg) O2 Sat by Pulse 97 97 97 Oximetry 11/21/18 11/21/18 11/21/18 11:15 11:30 11:46 Temperature Pulse Rate 60 64 62 Respiratory 9 12 13 Rate Blood Pressure 155/66 167/74 156/81 (mmHg) O2 Sat by Pulse 98 98 95 Oximetry 11/21/18 11/21/18 11/21/18 12:00 12:15 12:31 Temperature Pulse Rate 60 59 64 Respiratory 12 15 14 Rate Blood Pressure 170/70 151/78 141/81 (mmHg) O2 Sat by Pulse 96 96 97 Oximetry 11/21/18 11/21/18 11/21/18 12:45 13:00 13:07 Temperature 98.1 F Pulse Rate 67 66 63 Respiratory 19 16 10 Rate Blood Pressure 158/97 164/77 157/87 (mmHg) O2 Sat by Pulse 94 93 93 Oximetry 11/21/18 11/21/18 11/21/18 13:31 14:38 15:41 Temperature 98.7 F 97.7 F 99.0 F Pulse Rate 66 71 63 Respiratory 16 16 20 Rate Blood Pressure 146/60 161/76 178/82 (mmHg) O2 Sat by Pulse 93 96 94 Oximetry 11/21/18 11/21/18 16:45 17:57 Temperature 98.6 F Pulse Rate 66 65 Respiratory 16 Rate Blood Pressure 122/54 122/66 (mmHg) O2 Sat by Pulse 93 Oximetry Oxygen Devices in Use Now: None Appearance: Comfortable, NAD Eyes: No Scleral Icterus Ears/Nose/Mouth/Throat: Clear Oropharnyx, Mucous Membranes Moist Neck: NL Appearance and Movements; NL JVP Respiratory: Symmetrical Chest Expansion and Respiratory Effort, Clear to Auscultation Cardiovascular: NL Sounds; No Murmurs; No JVD, RRR, No Edema Abdominal: NL Sounds; No Tenderness; No Distention Lymphatic: No Cervical Adenopathy Extremities: No Edema Skin: No Rash or Ulcers, - - Dressing to RLE CDI Neurological: Alert and Oriented x 3, NL Muscle Strength and Tone Nutrition: Taking PO's Result Diagrams: 11/21/18 05:38 11/21/18 05:38 Additional Lab and Data: Laboratory Results - last 24 hr 11/21/18 11/21/18 11/21/18 05:38 05:38 05:38 WBC 6.6 RBC 3.48 L Hgb 11.8 L Hct 34 L MCV 98 H MCH 34 H MCHC 35 RDW 13 Plt Count 226 MPV 8.4 Neut % (Auto) 57.7 Lymph % (Auto) 24.4 [place] % (Auto) 14.1 Eos % (Auto) 3.4 Baso % (Auto) 0.4 Absolute Neuts (auto) 3.8 Absolute Lymphs (auto) 1.6 Absolute Monos (auto) 0.9 H Absolute Eos (auto) 0.2 Absolute Basos (auto) 0.0 Absolute Nucleated RBC 0.0 Nucleated RBC % 0.0 INR (Anticoag Therapy) 1.10 H Sodium 136 Potassium 3.7 Chloride 105 Carbon Dioxide 26 Anion Gap 5 BUN 14 Creatinine 0.68 Est GFR ( Amer) 135.1 Est GFR (Non-Af Amer) 111.6 BUN/Creatinine Ratio 20.6 H Glucose 105 H Calcium 8.9 Assess/Plan/Problems-Billing Assessment: 83 yr old male with pmh of AAA, glaucoma, left ankle fx, right wrist fx, gastric ulcer, bph, heart murmur; who presented to ED after mechanical fall and right hip fx - Patient Problems (1) Hip fracture, right Comment: - POD 0 - S/P internal fx - Pain management and dvt proph per ortho (2) Urinary retention Comment: - Hx of BPH; Follow with Urs[facility] - Voided 250ML and had noted retention, therefore, straight cath'd and had 750 ml output - Repeat post void tomorrow (3) AAA (abdominal aortic aneurysm) Comment: - Stable since 2015 - Defer to oupatient provider for routine follow ups as recommended (4) Tobacco abuse Comment: - Denies need for nicotine replacement Status and Disposition: Discharge per ortho Attending: Felicita Silva
[2018-11-21] MEDS ORDERED: LATANOPROST 0.005% BOTH EYES SCH (19:30)
[2018-11-21] MEDS ORDERED: EYE BOTH EYES SCH (19:30)
[2018-11-21] MEDS: Aspirin EC TAB* 325 MG PO SCH (22:01)
[2018-11-22] MEDS: Acetaminophen TAB* 325 MG PO SCH (07:23)
[2018-11-22] MEDS: Aspirin EC TAB* 325 MG PO SCH (10:19)
--- NOTE | 2018-11-22 10:56 | DS ---
Orthopedic Discharge Summary - Discharge Summary Date of Admission:11/20/18 Date of Discharge: 11/22/18 Date of Surgery: 11/21/18 Attending Orthopedic Provider: Dr. Patel Pre-operative Diagnosis: right femoral neck fracture Operative Procedure: Cannulated screw fixation right femoral neck fracture Disposition of Patient: home Condition of Patient: stable History: AXEL LIANG is a 83 year old M with complaints right groin pain pain. He was walking on the right leg with pain and waws found to have an impacted right femoral neck fracture. It was felt he would benefit from cannulated screw fixation. He elected to proceed. Hospital Course: AXEL was admitted to [facility] on 11/20/18. Patient underwent a right cannulated screw fixation without complication followed by a brief recovery in PACU and transfer to the Short Stay Surgical Unit in stable condition. Our hospitalist service, physical therapy and occupational therapy also participated in this patients care. He had brief urinary retention the evening of his surgery which resolved by post op day #1. Post-op day 1: patient was alert and in no acute distress. Dressing was clean, dry and intact. New betadine dressing applied. Wound benign. Operative extremity dorsiflexion and plantarflexion intact, sensation intact to light touch distally, DP2+. Patient was deemed to be medically and orthopedically stable for discharge. Physical therapy goals were met. Home Medications Medication Instructions Recorded Confirmed Type Latanoprost 0.005% Eye Drop 1 drop BOTH EYES QPM 11/21/18 11/21/18 History Aspirin EC TAB* [Ecotrin EC TAB*] 325 mg PO BID tab.ec 11/22/18 Rx
[2018-11-22 11:07] VITALS: BP 112/59
[2018-11-22] MEDS ORDERED: Latanoprost 0.005%* 2.5 ml BTL BOTH EYES SCH (18:00)
== END 2018-11-22 12:00 | disposition home or self-care (01) | DRG 481 ==
LOC: ED 09:43 → SSU 10:50
PROVIDERS: ADMIT Orthopaedic Surgery; ATTEND Orthopaedic Surgery
PROC: 0QS604Z Reposition Right Upper Femur with Internal Fixation Device, Open Approach (ICD-10-PCS; principal; 2018-11-21 08:30)
DX: S72.001A Fracture of unspecified part of neck of right femur, initial encounter for closed fracture (principal); N13.8 Other obstructive and reflux uropathy; Y93.01 Activity, walking, marching and hiking; W01.0XXA Fall on same level from slipping, tripping and stumbling without subsequent striking against object, initial encounter; M54.30 Sciatica, unspecified side; F17.290 Nicotine dependence, other tobacco product, uncomplicated; H40.9 Unspecified glaucoma; I71.4 Abdominal aortic aneurysm, without rupture; N40.1 Benign prostatic hyperplasia with lower urinary tract symptoms; H35.30 Unspecified macular degeneration; R33.8 Other retention of urine; Z79.82 Long term (current) use of aspirin; Y92.9 Unspecified place or not applicable; Z88.0 Allergy status to penicillin; Z87.01 Personal history of pneumonia (recurrent); Z87.11 Personal history of peptic ulcer disease; Z80.6 Family history of leukemia; Z84.89 Family history of other specified conditions; Z80.9 Family history of malignant neoplasm, unspecified; Z72.89 Other problems related to lifestyle
CPT/HCPCS: 36415; 71045; 80048; 80053; 82565; 83735; 84520; 85025; 85610; 85730; 86850; 86900; 86901; 93005; 99284; 99406; A9270-GY; C1713; G8978-GP-CI; G8979-GP-CH; G8979-GP-CI; G8980-GP-CI; J0690; J1100; J1200; J1644; J2250; J2704; J3010; J3490